=== PATIENT | male | born 1965 | race Caucasian/White ===

== ENCOUNTER 2020-10-06 17:20 | Inpatient (IN) | payer BC, SELFPAY ==
[2020-10-06] VITALS (19 sets, daily range): BP systolic 140–167; BP diastolic 72–98; PULSE 94–118; RESP 17–27; TEMP 37.1–37.6; O2SAT 89–96; BMI 33.5
--- NOTE | ~2020-10-06 | XR_ITS ---
EXAMINATION: XR chest 1V portable INDICATION: COVID 19 pneumonia TECHNIQUE: Portable AP chest at 0548 hours COMPARISON: 10/09/2020 FINDINGS: Patchy bilateral opacities persist throughout all lung zones without significant change. Th ere is no pleural effusion or pneumothorax. The cardiomediastinal silhouette is normal. IMPRESSION: 1. Stable diffuse lung disease, consistent with pneumonia and/or pulmonary edema and/or acute respira tory distress syndrome (ARDS). Reviewed, dictated and finalized at location A. ING PROJECTS ADMINISTRATOR IMPRESSION: 1. Stable diffuse lung disease, consistent with pneumonia and/or pulmonary kalpana a and/or acute respiratory distress syndrome (ARDS).
--- NOTE | ~2020-10-06 | XR_ITS ---
EXAMINATION: XR chest 1V portable EXAM DATE: 10/09/2020 05:53 INDICATION: COVID pneumonia. TECHNIQUE: Portable AP frontal chest x-ray was obtained. Comparison is made to prior examination from 10/06, 10/08. FINDINGS: Moderate to large left-sided, moderate amount of right-sided patchy ill-defined airspace di sease consistent with COVID pneumonia. There is no pneumothorax suspected. There are no pleural effus ions. The cardiomediastinal silhouette is prominent but magnified on this AP technique. There are no osseous abnormalities identified. There is been interval progression in airspace disease compared to prior study. IMPRESSION: Bilateral COVID pneumonia with interval progression. Reviewed, dictated and finalized at location A. ORMANCE MANAGEMENT CONSULTANT
--- NOTE | ~2020-10-06 | XR_ITS ---
EXAMINATION: XR chest 1V portable INDICATION: COVID 19, hypoxia TECHNIQUE: Portable AP chest at 1800 hours COMPARISON: None available FINDINGS: There are diffuse opacities of the lungs, left greater than right. No pleural effusion or p neumothorax is identified. The cardiomediastinal silhouette is normal. IMPRESSION: 1. Diffuse lung disease, consistent with pneumonia and/or pulmonary edema and/or acute respiratory di stress syndrome (ARDS). Reviewed, dictated and finalized at location A. UNITY SUPPORT WORKER IMPRESSION: 1. Diffuse lung disease, consistent with pneumonia and/or pulmonary edema and/o r acute respiratory distress syndrome (ARDS).
--- NOTE | ~2020-10-06 | XR_ITS ---
EXAMINATION: XR chest 1V portable EXAM DATE: 10/08/2020 07:59 INDICATION: COVID pneumonia. TECHNIQUE: Portable AP frontal chest x-ray was obtained. Comparison is made to prior examination from 10/06/2020. FINDINGS: Moderate left-sided, small to moderate amount of right-sided patchy ill-defined airspace di sease consistent with COVID pneumonia. There is no pneumothorax suspected. There are no pleural effus ions. The cardiomediastinal silhouette is prominent but magnified on this AP technique. There are no osseous abnormalities identified. IMPRESSION: Bilateral COVID pneumonia unchanged. Reviewed, dictated and finalized at location A. HER GOODS I ASSEMBLER
--- NOTE | 2020-10-06 17:28 | ECG_ITS ---
Measurements Intervals Lee Rate: 107 P: 23 SC: 136 QRS: -40 QRSD: 105 T: 16 QT: 329 QTc: 440 Interpretive Statements SINUS TACHYCARDIA LEFT AXIS DEVIATION ANTEROSEPTAL INFARCT, AGE INDETERMINATE BASELINE ARTIFACT- I, III, AVR, AVL ABNORMAL ECG Electronically Signed On 10-06-2020 21:38:42 DIRECTOR ELECTRONICS by Javan Apodaca D.O.
--- NOTE | 2020-10-06 17:34 | ED.GENADULT ---
HPI - General Adult General Chief complaint: Shortness of Breath/Dyspnea Stated complaint: low o2 levels, shortness of breath, COVID positive Time Seen by Provider: 10/06/20 17:23 Source: patient History of Present Illness HPI narrative: Patient is a 55 y/o male complaining of mild SOB for about 6 days. He states that walking and exertion makes his SOB worse. He has some cough and subjective fever. He denies any chest pain. He states that he went to a urgent care clinic last week Tuesday or and his COVID test was positive. Related Data Home Medications Medication Instructions Recorded Confirmed buspirone [BuSpar] 10 mg PO BID 10/06/20 glipizide 10 mg BID 10/06/20 10/06/20 Allergies Allergy/AdvReac Type Severity Reaction Status Date / Time No Known Allergies Allergy Verified 10/06/20 18:08 Review of Systems Constitutional: Constitutional: Denies chills, Reports fever(s), Denies headache(s) and Denies weakness Eyes: Eyes: Denies blurry vision ENT: Denies headache(s) and Denies neck pain Cardiovascular: Cardiovascular: Denies chest pain and Reports dyspnea Respiratory: Respiratory: Reports cough and Reports dyspnea Gastrointestinal: Gastrointestinal: Denies abdominal pain, Denies diarrhea, Denies nausea and Denies vomiting Genitourinary: Genitourinary: Denies hematuria and Denies dysuria Musculoskeletal: Musculoskeletal: Denies back pain and Denies neck pain Neurologic: Denies headache(s) and Denies weakness PMFSH Social History Social History Gender identity (if verbalized by the patient): Male Exam Const: General: no acute distress and well developed Orientation/consciousness: oriented to person, oriented to place, oriented to time and patient oriented x3 HENMT: Head: normocephalic Ears: external ears normal General nose exam: Normal external nose present Eyes: General: appearance normal, both eyes and all related structures Conjunctivae: conjunctivae normal Neck: Neck: normal visual inspection and full ROM Chest: Chest palpation & inspection: normal inspection of the chest and no tenderness Resp: Effort & Inspection: normal respiratory effort Auscultation: clear to auscultation bilaterally Cardio: Rate: regular rate Rhythm: regular rhythm GI: GI Palp: No abdominal tenderness and Yes Soft to palpation Skin: General skin exam: normal color and turgor normal Neuro: General: oriented to person, oriented to place, oriented to time and patient oriented x3 Cognition (Neuro): normal cognition Extrem: General: normal to inspection, full ROM and no pedal edema Psych: Appearance: grossly normal Mental Status: mental status grossly normal Affect: normal affect Course Consultations Consultation #1: Discussed with KEL Dueñas, who agrees to admit. Date: 10/06/20 Time: 18:52 Vital Signs Vital signs: Vital Signs Temperature 37.6 C 10/06/20 17:37 Pulse Rate 105 H 10/06/20 17:37 Respiratory Rate 24 H 10/06/20 17:37 Blood Pressure 167/98 H 10/06/20 17:37 Pulse Oximetry 89 L 10/06/20 17:37 Temperature 37.6 C 10/06/20 17:37 Pulse Rate 99 10/06/20 19:01 Respiratory Rate 22 H 10/06/20 19:01 Blood Pressure 155/87 H 10/06/20 19:01 Pulse Oximetry 94 10/06/20 19:01 Medical Decision Making Vital Signs Vital Signs: Vital Signs Temperature 37.6 C 10/06/20 17:37 Pulse Rate 105 H 10/06/20 17:37 Respiratory Rate 24 H 10/06/20 17:37 Blood Pressure 167/98 H 10/06/20 17:37 Pulse Oximetry 89 L 10/06/20 17:37 Temperature 37.6 C 10/06/20 17:37 Pulse Rate 99 10/06/20 19:01 Respiratory Rate 22 H 10/06/20 19:01 Blood Pressure 155/87 H 10/06/20 19:01 Pulse Oximetry 94 10/06/20 19:01 Lab Data Result diagrams: 10/06/20 17:38 10/06/20 17:38 Labs: Lab Results 10/06/20 10/06/20 10/06/20 Range/Units 17:36 17:38 17:38 WBC 6.7 (4.5-10.0) K/mm3
[2020-10-06 17:50] LABS: Base Excess ABG -0.1 mEq/l (+/-2.0); Carboxyhemoglobin 0.8 % THb (0-2.0); Fractional Inspired Oxygen 28 %; HCO3 ABG 23.8 mEq/l (22.0-26.0); Methemoglobin ABG 0.2 %THb (0-1.5); Oxygen Content ABG 18.5 %vol (16.0-22.0); Oxygen Saturation ABG 93.4 % (95.0-100.0); Oxyhemoglobin 91.9 % THb (90.0-100.0); PCO2 ABG 36.3 mmHg (35.0-45.0); PO2 ABG 64.8 mmHg (80.0-100.0); PO2 FiO2 Ratio Arterial Blood 2.31 %; Reduced Hemoglobin 7.1 %THb (0-5.0); Total Hemoglobin 14.3 g/dL (12.0-18.0); pH ABG 7.434 (7.350-7.450)
--- NOTE | 2020-10-06 17:50 | PC.NURSE ---
patient brought back to ED room 14 with c/o increasing shortness of breath. (+) Covid 7 days ago. girlfriend checking his O2 sats at home starting noticing RA sats 88% or 85% so sent patient to ED. alert. oriented. denies known fever. denies productive cough. on physician scribe. placed on 2L NC on arrival. has call light in reach.
[2020-10-06 17:51] LABS: Basophils Percent Auto 0.3 % (0.2-1.2); Hematocrit 42.3 % (42.0-52.0); Hemoglobin 14.6 g/dL (14.0-18.0); Immature Granulocyte Absolute 0.01 K/mm3 (0.00-0.031); Immature Granulocyte Percent A 0.1 % (0-0.5); Lymphocytes Absolute Auto 1.05 K/mm3 (0.9-3.2); Lymphocytes Percent Auto 15.7 % (18.3-44.2); Mean Corpuscular HGB Conc 34.5 g/dl (32-36); Mean Corpuscular Hemoglobin 28.7 pg (26-34); Mean Corpuscular Volume 83.1 fl (80-100); Mean Platelet Volume 8.8 fl (7.4-10.4); Monocytes Absolute Auto 0.6 K/mm3 (0.1-0.6); Monocytes Percent Auto 8.5 % (2.6-8.5); Neutrophils Percent Auto 75.4 % (45.5-73.1); Platelet Count Result 285 k/mm3 (150-375); Red Blood Count 5.09 M/mm3 (4.6-6.20); Red Cell Distribution Width 11.8 % (11.5-14.5); White Blood Count 6.7 K/mm3 (4.5-10.0)
[2020-10-06 17:51] LABS: Device NASAL CANNULA; Site Drawn LEFT BRACHIAL
--- NOTE | 2020-10-06 18:12 | PC.NURSE ---
patient updated on current treatment plan. will discuss labs needed prior to giving anti-viral with labs as add-ons or may need to be drawn.
[2020-10-06 18:17] LABS: Lactic Acid Reflex 1.4 mmol/L (0.7-2.1)
[2020-10-06 18:18] LABS: Alanine Aminotransferase 30 U/L (4-50); Albumin Level 3.8 g/dL (3.5-5.1); Alkaline Phosphatase 98 U/L (38-126); Anion Gap 8 mmol/L (8-16); Aspartate Amino Transferase 44 U/L (17-59); Bilirubin,Total 0.6 mg/dL (0.2-1.3); Blood Urea Nitrogen 19 mg/dL (9-20); Carbon Dioxide 26 mmol/L (22-30); Chloride 98 mmol/L (98-107); Estimated CRCL calculation 154 ml/min; Estimated Glomerular Filt Rate > 60; Glucose 345 mg/dL (75-110); Potassium 3.6 mmol/L (3.4-5.0); Sodium 132 mmol/L (137-145)
[2020-10-06 18:20] LABS: Alanine Aminotransferase 30 U/L (4-50)
--- NOTE | 2020-10-06 18:27 | PC.NURSE ---
spoke with pharmacy. labs are documented. ok to start remdesivir.
[2020-10-06] MEDS: INSULIN HUMAN REGULAR (*BKC) 100 UNITS/ML 8 UNITS SUB-Q (18:33)
--- NOTE | 2020-10-06 18:37 | PC.NURSE ---
medicated as ordered. denies any needs except he wants to eat. waiting for other meds from pharmacy.
--- NOTE | 2020-10-06 19:10 | PC.NURSE ---
SBAR faxed to 3rd floor. patient assigned to [id number].
--- NOTE | 2020-10-06 19:35 | PC.NURSE ---
report called to 3rd floor.
--- NOTE | 2020-10-06 19:45 | PC.NURSE ---
This patient, Chino Aleman, was admitted to [facility] Surg Room 303-01. Patient/family oriented to hospital policies and general routines including ID bracelet, bed and alarms, visiting hours, pain management, procedures, bathroom and other care routines, personal items, smoking policy, room service/diet, and visiting hours. Information on how to activate the Rapid Response Team has been discussed. Patient/Family are encouraged to report perceived risks to care and to ask questions if they do not understand what they are told or what they should do.
[2020-10-06] MEDS: REMDESIVIR 200 MG/NS 250 ML 200 MG/250 ML BAG 250 MG IVPB (20:14)
--- NOTE | 2020-10-06 21:51 | PCRCNOTE ---
Pt COVID positive unable to use S9 CPAP at this time.
[2020-10-06 21:55] LABS: Glucose Point of Care 268 (65-105)
[2020-10-07] VITALS (8 sets, daily range): BP systolic 149–169; BP diastolic 69–94; PULSE 75–99; RESP 20–24; TEMP 36.2–36.4; O2SAT 90–93
[2020-10-07] MEDS: glipiZIDE 5 MG TABLET 10 MG BY MOUTH ×2 (06:08→17:16)
[2020-10-07 06:21] LABS: Basophils Percent Auto 0.2 % (0.2-1.2); Hematocrit 39.6 % (42.0-52.0); Hemoglobin 13.4 g/dL (14.0-18.0); Immature Granulocyte Absolute 0.01 K/mm3 (0.00-0.031); Immature Granulocyte Percent A 0.2 % (0-0.5); Lymphocytes Absolute Auto 0.86 K/mm3 (0.9-3.2); Lymphocytes Percent Auto 17.9 % (18.3-44.2); Mean Corpuscular HGB Conc 33.8 g/dl (32-36); Mean Corpuscular Hemoglobin 27.8 pg (26-34); Mean Corpuscular Volume 82.2 fl (80-100); Mean Platelet Volume 9.1 fl (7.4-10.4); Monocytes Absolute Auto 0.2 K/mm3 (0.1-0.6); Neutrophils Absolute Auto 3.7 K/mm3 (1.3-6.7); Neutrophils Percent Auto 76.7 % (45.5-73.1); Platelet Count Result 307 k/mm3 (150-375); Red Blood Count 4.82 M/mm3 (4.6-6.20); Red Cell Distribution Width 11.7 % (11.5-14.5); White Blood Count 4.8 K/mm3 (4.5-10.0)
[2020-10-07 06:48] LABS: Alanine Aminotransferase 30 U/L (4-50); Albumin Level 3.8 g/dL (3.5-5.1); Alkaline Phosphatase 88 U/L (38-126); Anion Gap 7 mmol/L (8-16); Aspartate Amino Transferase 41 U/L (17-59); Bilirubin,Total 0.6 mg/dL (0.2-1.3); Blood Urea Nitrogen 20 mg/dL (9-20); Calcium 9.4 mg/dL (8.4-10.2); Carbon Dioxide 29 mmol/L (22-30); Chloride 98 mmol/L (98-107); Estimated CRCL calculation 155 ml/min; Estimated Glomerular Filt Rate > 60; Glucose 315 mg/dL (75-110); Lactate Dehydrogenase 792 U/L (313-618); Magnesium 2.4 mg/dL (1.6-2.3); Potassium 4.5 mmol/L (3.4-5.0); Sodium 134 mmol/L (137-145)
[2020-10-07 09:23] LABS: Hemoglobin A1C 10.4 % (<5.7)
[2020-10-07] MEDS: ENOXAPARIN 40 MG/0.4 ML SYRINGE SUB-Q ×2 (09:29→21:32)
[2020-10-07] MEDS: busPIRone HCL 10 MG TABLET PO ×2 (09:30→17:16)
[2020-10-07] MEDS: DEXAMETHASONE SOD PHOS INJ 4 MG/ML VIAL 6 MG IV PUSH (09:30)
--- NOTE | 2020-10-07 09:37 | PM.IMHP ---
H&P: HPI History of Present Illness Date/Time: 10/07/20 09:37 Chief Complaint: Shortness of breath, COVID-19 positive Narrative: Chino Aleman is a 55 year old male with a history of diabetes and depression/anxiety who presented emergency room for worsening COVID-19 symptoms. Patient states he started having a severe dry cough, headache and fatigue last Tuesday. He then started having weakness and dizziness and could not eat so he went to the urgent care and got COVID-19 tested and he was positive. He never took his temperature but did have a subjective temp. He uses a CPAP at home and he was checking his oxygen levels and he was hovering around 90 but dropped to 83 which prompted him to come in. Today he is feeling a bit better. He has a slight headache, his cough is better, and his dizziness is gone. He has no shortness of breath at rest or when walking but notices he is taking shallow breaths because it makes him cough. He has not eaten very much as he has no appetite but can smell and taste. He had some diarrhea a couple days ago which is now better. He denies leg pain/so swelling, numbness or tingling, dysuria or chest pain. He states he has diabetes and unsure when his last A1c was. He does not take his glucose at home but just takes his DM medication. He is unsure where he contracted COVID-19 but just last week he went on vacation to [place] where he went to multiple shops and restaurants but states he wore mask. He is unable to take metformin because it causes him to have diarrhea. Review of Systems Review of Systems: All systems reviewed & are unremarkable except as noted in HPI and below PMFSH Past Medical History Medical History (Updated 10/07/20 @ 09:55 by Chrystal Aden PA-C) Anxiety and depression JAMAR (obstructive sleep apnea) T2DM (type 2 diabetes mellitus) Surgical History Surgical History (Updated 10/07/20 @ 09:52 by Chrystal Aden PA-C) History of hernia repair Family History Family History (Updated 10/07/20 @ 09:53 by Chrystal Aden PA-C) Mother Heart disease Father Heart disease Social History Social History (Updated 10/07/20 @ 09:53 by Chrystal Aden PA-C) Social History: Patient drinks about 1 alcoholic beverage a week, has never smoked, does not do marijuana or other drugs. He would like to be a full code. He designates his mother, Fidelina, as his surrogate decision maker if needed Smoking status: Never smoker Alcohol intake: current Drinks per week: 3 Substance use: never Gender identity (if verbalized by the patient): Male Spiritual care concerns: No Meds Home Medications and Allergies Home Medications Medication Instructions Recorded Confirmed Type buspirone [BuSpar] 10 mg PO BID 10/06/20 10/06/20 History glipizide 10 mg BID 10/06/20 10/06/20 History Allergies Allergy/AdvReac Type Severity Reaction Status Date / Time No Known Allergies Allergy Verified 10/06/20 20:27 Vital Signs Vital Signs - 24 hr 10/06/20 17:37 10/06/20 17:42 10/06/20 17:54 Temperature 99.6 F Pulse Rate 105 H 118 H 103 H Respiratory Rate 24 H 23 H Blood Pressure 167/98 H Pulse Oximetry 89 L 94 10/06/20 18:00 10/06/20 18:01 10/06/20 18:02 Temperature Pulse Rate 112 H 107 H 108 H Respiratory Rate 27 H 20 22 H Blood Pressure 162/86 H Pulse Oximetry 91 92 92 10/06/20 18:03 10/06/20 18:15 10/06/20 18:16 Temperature Pulse Rate 100 102 H Respiratory Rate 20 23 H Blood Pressure 150/87 H Pulse Oximetry 94 96 96 10/06/20 18:17 10/06/20 18:30 10/06/20 18:31 Temperature Pulse Rate 106 H 96 97 Respiratory Rate 20 17 21 H Blood Pressure 140/73 Pulse Oximetry 91 94 95 10/06/20 18:45 10/06/20 18:46 10/06/20 18:47 Temperature Pulse Rate 94 97 96 Respiratory Rate 21 H 23 H 19 Blood Pressure 143/72 H Pulse Oximetry 95 95 95 10/06/20 19:00 10/06/20 19:01 10/06/20 20:00 Temperature Pulse Rate 101
[2020-10-07 11:36] LABS: Glucose Point of Care 312 (65-105)
[2020-10-07] MEDS: INSULIN ASPART (*BKC) 100 UNITS/ML SUB-Q ×2 (12:33→17:16)
[2020-10-07 12:38] LABS: Glucose Point of Care 345 (65-105)
[2020-10-07 17:59] LABS: Glucose Point of Care 465 (65-105)
--- NOTE | 2020-10-07 18:03 | PC.NURSE ---
1710 pt was up in restroom without o2 pulse ox 85%, got him back to bed applied o2 at 3 l remained 85 , increased to 6 remained at 86, applied high flow with humidity 8l liters, continued to be 88 % 1730 increased o2 to 15 l high flow,pt blood sugar was 465 Dr. Overton notified instructed to give sliding scale up to 6 units.
[2020-10-07] MEDS: INSULIN GLARGINE (*BKC) 100 UNITS/ML 10 UNITS SUB-Q (21:32)
[2020-10-07] MEDS: REMDESIVIR 100 MG/NS 250 ML 100 MG/250 ML BAG 250 MG IVPB (21:32)
[2020-10-07] MEDS: guaiFENesin 12 HR 600 MG TABCR PO (21:32)
[2020-10-07 21:44] LABS: Glucose Point of Care 433 (65-105)
[2020-10-07] MEDS: INSULIN ASPART (*BKC) 100 UNITS/ML 6 UNITS SUB-Q (23:18)
[2020-10-08] VITALS (11 sets, daily range): BP systolic 148–168; BP diastolic 78–92; PULSE 68–110; RESP 16–20; TEMP 36–36.6; O2SAT 90–96
[2020-10-08 00:34] LABS: Glucose Point of Care 390 (65-105)
[2020-10-08 06:29] LABS: Hematocrit 38.6 % (42.0-52.0); Hemoglobin 13.3 g/dL (14.0-18.0); Mean Corpuscular HGB Conc 34.5 g/dl (32-36); Mean Corpuscular Hemoglobin 27.9 pg (26-34); Mean Corpuscular Volume 81.1 fl (80-100); Mean Platelet Volume 9.1 fl (7.4-10.4); Platelet Count Result 360 k/mm3 (150-375); Red Blood Count 4.76 M/mm3 (4.6-6.20); Red Cell Distribution Width 11.7 % (11.5-14.5); White Blood Count 6.6 K/mm3 (4.5-10.0)
[2020-10-08 06:48] LABS: Alanine Aminotransferase 26 U/L (4-50); Albumin Level 3.3 g/dL (3.5-5.1); Alkaline Phosphatase 100 U/L (38-126); Anion Gap 3 mmol/L (8-16); Aspartate Amino Transferase 33 U/L (17-59); Bilirubin,Total 0.3 mg/dL (0.2-1.3); Blood Urea Nitrogen 25 mg/dL (9-20); CRP 4.5 mg/dL (<1.0); Calcium 9.2 mg/dL (8.4-10.2); Carbon Dioxide 29 mmol/L (22-30); Chloride 104 mmol/L (98-107); Estimated CRCL calculation 155 ml/min; Estimated Glomerular Filt Rate > 60; Glucose 324 mg/dL (75-110); Lactate Dehydrogenase 729 U/L (313-618); Potassium 3.7 mmol/L (3.4-5.0); Sodium 136 mmol/L (137-145)
[2020-10-08] MEDS: INSULIN ASPART (*BKC) 100 UNITS/ML SUB-Q ×6 (08:32→17:17)
[2020-10-08 08:33] LABS: Glucose Point of Care 318 (65-105)
[2020-10-08] MEDS: glipiZIDE 5 MG TABLET 10 MG BY MOUTH ×2 (08:33→17:18)
[2020-10-08] MEDS: guaiFENesin 12 HR 600 MG TABCR PO ×2 (08:34→21:13)
[2020-10-08] MEDS: DEXAMETHASONE SOD PHOS INJ 4 MG/ML VIAL 6 MG IV PUSH (08:34)
[2020-10-08] MEDS: ENOXAPARIN 40 MG/0.4 ML SYRINGE SUB-Q ×2 (08:34→21:13)
[2020-10-08] MEDS: busPIRone HCL 10 MG TABLET PO ×2 (08:34→17:18)
[2020-10-08 13:34] LABS: Glucose Point of Care 337 (65-105)
--- NOTE | 2020-10-08 16:12 | PM.IMPN ---
Progress Note: A&P Assessment and Plan (1) Pneumonia due to COVID-19 virus: Code(s): U07.1 - COVID-19; J12.82 - Pneumonia due to coronavirus disease 2019 Status: Acute Assessment and Plan: Chest x-ray and symptoms consistent with COVID-19 -patient's symptoms started 7 days ago -continue Remdesivir, Decadron, Lovenox -patient required more oxygen yesterday and overnight -recheck chest x-ray in the morning -try and obtain a negative pressure room so he can continue CPAP at night -continue oxygen, currently at 10L -guarded prognosis since he went from 2 L to 10 L within 24 hours (2) Acute respiratory failure with hypoxia: Code(s): J96.01 - Acute respiratory failure with hypoxia Status: Acute Assessment and Plan: Secondary to above -wean oxygen as tolerated (3) T2DM (type 2 diabetes mellitus): Code(s): E11.9 - Type 2 diabetes mellitus without complications Status: Acute Assessment and Plan: Last glucose 337 -worse with Decadron and patient ordering [employer] to bedside -patient does not check his glucose at home -he was not surprised by his A1c of 10.4 -Lantus increased to 15u -Will do scheduled novolog and SSI and increase as needed -will likely need to be adjusted further since his glucose is uncontrolled and on decadron and not following diabetic diet -will go home on Lantus at discharge. Patient is unable to tolerate metformin due to severe diarrhea (4) Anxiety and depression: Code(s): F41.9 - Anxiety disorder, unspecified; F32.9 - Major depressive disorder, single episode, unspecified Status: Acute Assessment and Plan: chronic and well controlled at this time -continue BuSpar -he has no thoughts of harming himself (5) JAMAR (obstructive sleep apnea): Code(s): G47.33 - Obstructive sleep apnea (adult) (pediatric) Status: Acute Assessment and Plan: He wears CPAP at home -unable to wear this since he is not in a negative pressure room and he did not do well without this overnight -I have asked nursing to move him to a negative pressure room so he can wear it overnight Time Spent With Patient Time with patient: 25 - 35 minutes Subjective Date/time seen: 01/20/21 16:12 Interval history: Pt is a 55-year-old male here for COVID who was seen today. Patient states he is feeling better but did not feel well overnight. He said that he woke up gasping for air because he is not able to wear his CPAP and really thinks it makes a difference. He had 1 episode of diarrhea this morning but no other episodes since. He does not really feel any shortness of breath at this time but continues to have cough and postnasal drip which is uncomfortable for him. He denies any chest pain. He states his blood sugar has been running high but also admits to ordering [employer] to be delivered to his hospital room last night. Review of Systems Review of Systems: All systems reviewed & are unremarkable except as noted in HPI and below Exam Narrative: Exam Narrative: General:Well developed well nourished patient HEENT: Normocephalic, atraumatic, PERRL, Sclerae anicteric, oral mucosa moist. Neck: Supple Resp: Clear to auscultation today--much improved Heart: RRR with no murmurs. Telemetry with no significant arrhythmias, some artifact noted yesterday. Occasional PVCs today Abd: Soft, nontender. No pain to palpation. Positive bowel sounds Skin: Warm and dry Extremities: No swelling, erythema or pain to palpation Neuro: Alert and Oriented x4 . CN 2-12 intact. No focal neurological deficits. Objective Data Vital Signs Vital Signs: Vital Signs - 24 hr 10/07/20 17:30 10/07/20 17:33 10/07/20 20:00 Temperature 97.5 F L 97.4 F L Pulse Rate 99 95 Respiratory Rate 24 H 20 Blood Pressure 151/90 H 160/94 H Pulse Oximetry 92 90 92 10/08/20 00:00 10/08/20 04:00 10/08/20 08:00 Temperature 97.2 F L 97.9 F 97.1 F L
[2020-10-08] MEDS: BENZOCAINE/MENTHOL (*BKC) 18 EA LOZENGE 1 LOZENGE PO (17:17)
[2020-10-08 18:29] LABS: Glucose Point of Care 393 (65-105)
[2020-10-08] MEDS: INSULIN GLARGINE (*BKC) 100 UNITS/ML 15 UNITS SUB-Q (21:13)
[2020-10-08] MEDS: FLUTICASONE PROPIONATE 0.05% NA SPR 16 GM BTL (*BKC) 1 SPRAY NASAL (21:14)
[2020-10-08] MEDS: REMDESIVIR 100 MG/NS 250 ML 100 MG/250 ML BAG 250 MG IVPB (21:21)
[2020-10-08 22:02] LABS: Glucose Point of Care 351 (65-105)
[2020-10-09] VITALS (10 sets, daily range): BP systolic 116–174; BP diastolic 57–98; PULSE 71–111; RESP 18–24; TEMP 35.9–37.3; O2SAT 90–96
[2020-10-09 06:37] LABS: Hematocrit 41.8 % (42.0-52.0); Hemoglobin 14.5 g/dL (14.0-18.0); Mean Corpuscular HGB Conc 34.7 g/dl (32-36); Mean Corpuscular Hemoglobin 28.8 pg (26-34); Mean Corpuscular Volume 83.1 fl (80-100); Mean Platelet Volume 9.2 fl (7.4-10.4); Platelet Count Result 479 k/mm3 (150-375); Red Blood Count 5.03 M/mm3 (4.6-6.20); Red Cell Distribution Width 11.9 % (11.5-14.5); White Blood Count 10.3 K/mm3 (4.5-10.0)
[2020-10-09 06:44] LABS: Alanine Aminotransferase 28 U/L (4-50); Albumin Level 3.5 g/dL (3.5-5.1); Alkaline Phosphatase 95 U/L (38-126); Anion Gap 7 mmol/L (8-16); Aspartate Amino Transferase 36 U/L (17-59); Bilirubin,Total 0.4 mg/dL (0.2-1.3); Blood Urea Nitrogen 17 mg/dL (9-20); CRP 4.5 mg/dL (<1.0); Calcium 9.2 mg/dL (8.4-10.2); Carbon Dioxide 29 mmol/L (22-30); Chloride 102 mmol/L (98-107); Estimated CRCL calculation 134 ml/min; Estimated Glomerular Filt Rate > 60; Glucose 222 mg/dL (75-110); Lactate Dehydrogenase 785 U/L (313-618); Magnesium 1.8 mg/dL (1.6-2.3); Potassium 3.2 mmol/L (3.4-5.0); Sodium 138 mmol/L (137-145)
[2020-10-09 08:24] LABS: Glucose Point of Care 242 (65-105)
[2020-10-09] MEDS: INSULIN ASPART (*BKC) 100 UNITS/ML SUB-Q ×4 (11:00→17:54)
[2020-10-09] MEDS: glipiZIDE 5 MG TABLET 10 MG BY MOUTH ×2 (11:00→17:52)
[2020-10-09] MEDS: busPIRone HCL 10 MG TABLET PO ×2 (11:01→17:52)
[2020-10-09] MEDS: DEXAMETHASONE SOD PHOS INJ 4 MG/ML VIAL 6 MG IV PUSH (11:01)
[2020-10-09] MEDS: POTASSIUM CHLORIDE 20 MEQ TABLET 40 MEQ PO (11:01)
[2020-10-09] MEDS: FLUTICASONE PROPIONATE 0.05% NA SPR 16 GM BTL (*BKC) 1 SPRAY NASAL ×2 (11:02→21:42)
[2020-10-09] MEDS: ENOXAPARIN 40 MG/0.4 ML SYRINGE SUB-Q ×2 (11:02→21:42)
[2020-10-09] MEDS: guaiFENesin 12 HR 600 MG TABCR PO ×2 (11:02→21:42)
[2020-10-09 12:18] LABS: Glucose Point of Care 251 (65-105)
--- NOTE | 2020-10-09 16:58 | PM.IMPN ---
Progress Note: A&P Assessment and Plan (1) Pneumonia due to COVID-19 virus: Code(s): U07.1 - COVID-19; J12.82 - Pneumonia due to coronavirus disease 2019 Status: Acute Assessment and Plan: Chest x-ray and symptoms consistent with COVID-19 -patient's symptoms started 8 days ago -continue Remdesivir, Decadron, Lovenox -patient is requiring more oxygen today and chest x-ray looks worse -will order ABG at this time and continue increased oxygen now at 15 L nasal cannula with 10 L non-rebreather -patient is now on a negative pressure room although he could not use a CPAP because the mask was not fitting overnight. He has shaved and is going to try that tonight. He thinks his hypoxia has to do with his sleep apnea since the he has bad apnea according to him -guarded prognosis (2) Acute respiratory failure with hypoxia: Code(s): J96.01 - Acute respiratory failure with hypoxia Status: Acute Assessment and Plan: Secondary to above -wean oxygen as tolerated (3) T2DM (type 2 diabetes mellitus): Code(s): E11.9 - Type 2 diabetes mellitus without complications Status: Acute Assessment and Plan: Last glucose 251 -worse with Decadron and patient ordering [employer] to bedside the day prior -patient does not check his glucose at home -he was not surprised by his A1c of 10.4 -continue Lantus 15u -will continued schedule NovoLog as well as SSI and increase as needed -will likely need to be adjusted further since his glucose is uncontrolled and on decadron and not following diabetic diet -will go home on Lantus at discharge. Patient is unable to tolerate metformin due to severe diarrhea (4) Anxiety and depression: Code(s): F41.9 - Anxiety disorder, unspecified; F32.9 - Major depressive disorder, single episode, unspecified Status: Acute Assessment and Plan: chronic and well controlled at this time -continue BuSpar -he has no thoughts of harming himself (5) JAMAR (obstructive sleep apnea): Code(s): G47.33 - Obstructive sleep apnea (adult) (pediatric) Status: Acute Assessment and Plan: He wears CPAP at home -Now in a negative pressure room, re-trying CPAP tonight Time Spent With Patient Time with patient: 25 - 35 minutes Subjective Date/time seen: 10/09/20 16:58 Interval history: Pt is a 55-year-old male here for COVID-19. Patient was seen today after nursing staff tells me his oxygen requirement went up. Patient seen sitting on the edge of the bed in no acute distress. He said he did not even notice that he was short of breath or hypoxic until he had routine vitals done which showed hypoxia. He had no chest pain, diaphoresis, shortness of breath, nausea, vomiting, fevers, chills, or leg swelling during this time. He feels a little short of breath when walking around the room but other than that okay. He has had 1 episode diarrhea today. He is eating and drinking well Review of Systems Review of Systems: All systems reviewed & are unremarkable except as noted in HPI and below Exam Narrative: Exam Narrative: General:Well developed well nourished patient HEENT: Normocephalic, atraumatic, PERRL, Sclerae anicteric, oral mucosa moist. Neck: Supple Resp: Mild crackles at the bases, overall good air flow Heart: RRR with no murmurs. Telemetry with no significant arrhythmias Abd: Soft, nontender. No pain to palpation. Positive bowel sounds Skin: Warm and dry Extremities: No swelling, erythema or pain to palpation Neuro: Alert and Oriented x4 . CN 2-12 intact. No focal neurological deficits. Objective Data Vital Signs Vital Signs: Vital Signs - 24 hr 10/08/20 17:31 10/08/20 20:00 10/09/20 00:00 Temperature 97.9 F 98.2 F Pulse Rate 75 79 Respiratory Rate 20 20 Blood Pressure 168/90 H 174/89 H Pulse Oximetry 95 92 92 10/09/20 04:00 10/09/20 04:20 10/09/20 08:00 Temperature 98.1 F 98.7 F Pulse Rat
[2020-10-09 17:30] LABS: Alveolar/Arterial O2 Gradient 597.1 mmHg; Base Excess ABG -2.8 mEq/l (+/-2.0); Carboxyhemoglobin 0.3 % THb (0-2.0); Fractional Inspired Oxygen 100 %; HCO3 ABG 19.9 mEq/l (22.0-26.0); Methemoglobin ABG 0.3 %THb (0-1.5); Oxygen Content ABG 19.7 %vol (16.0-22.0); Oxyhemoglobin 95.6 % THb (90.0-100.0); PCO2 ABG 29.4 mmHg (35.0-45.0); PO2 ABG 86.5 mmHg (80.0-100.0); PO2 FiO2 Ratio Arterial Blood 0.87 %; Reduced Hemoglobin 3.8 %THb (0-5.0); Total Hemoglobin 14.6 g/dL (12.0-18.0); pH ABG 7.448 (7.350-7.450)
[2020-10-09 17:31] LABS: Modified Allen's Test Pass; Site Drawn LEFT RADIAL
[2020-10-09 18:33] LABS: Glucose Point of Care 332 (65-105)
[2020-10-09] MEDS: REMDESIVIR 100 MG/NS 250 ML 100 MG/250 ML BAG 250 MG IVPB (21:42)
[2020-10-09] MEDS: INSULIN GLARGINE (*BKC) 100 UNITS/ML 15 UNITS SUB-Q (22:35)
[2020-10-09 23:44] LABS: Glucose Point of Care 255 (65-105)
[2020-10-10] VITALS (11 sets, daily range): BP systolic 125–150; BP diastolic 64–93; PULSE 68–90; RESP 15–21; TEMP 35.8–36.6; O2SAT 94–100
[2020-10-10 06:41] LABS: Basophils Percent Auto 0.3 % (0.2-1.2); Eosinophils Absolute Auto 0.2 K/mm3 (0-0.3); Eosinophils Percent Auto 3.3 % (0-4.4); Hematocrit 36.4 % (42.0-52.0); Hemoglobin 12.2 g/dL (14.0-18.0); Immature Granulocyte Absolute 0.02 K/mm3 (0.00-0.031); Immature Granulocyte Percent A 0.3 % (0-0.5); Lymphocytes Absolute Auto 1.38 K/mm3 (0.9-3.2); Lymphocytes Percent Auto 24.1 % (18.3-44.2); Mean Corpuscular HGB Conc 33.5 g/dl (32-36); Mean Corpuscular Hemoglobin 27.8 pg (26-34); Mean Corpuscular Volume 82.9 fl (80-100); Mean Platelet Volume 8.9 fl (7.4-10.4); Monocytes Absolute Auto 0.6 K/mm3 (0.1-0.6); Monocytes Percent Auto 10.8 % (2.6-8.5); Neutrophils Absolute Auto 3.5 K/mm3 (1.3-6.7); Neutrophils Percent Auto 61.2 % (45.5-73.1); Platelet Count Result 378 k/mm3 (150-375); Red Blood Count 4.39 M/mm3 (4.6-6.20); Red Cell Distribution Width 11.9 % (11.5-14.5); White Blood Count 5.7 K/mm3 (4.5-10.0)
[2020-10-10 07:17] LABS: Alanine Aminotransferase 21 U/L (4-50); Albumin Level 2.9 g/dL (3.5-5.1); Alkaline Phosphatase 75 U/L (38-126); Anion Gap 2 mmol/L (8-16); Aspartate Amino Transferase 27 U/L (17-59); Bilirubin,Total 0.4 mg/dL (0.2-1.3); Blood Urea Nitrogen 16 mg/dL (9-20); Calcium 8.7 mg/dL (8.4-10.2); Carbon Dioxide 30 mmol/L (22-30); Chloride 104 mmol/L (98-107); Estimated CRCL calculation 182 ml/min; Estimated Glomerular Filt Rate > 60; Glucose 222 mg/dL (75-110); Lactate Dehydrogenase 693 U/L (313-618); Magnesium 2.1 mg/dL (1.6-2.3); Potassium 3.2 mmol/L (3.4-5.0); Sodium 136 mmol/L (137-145)
[2020-10-10 08:09] LABS: Device HIGH FLOW NASAL CANN
[2020-10-10] MEDS: INSULIN ASPART (*BKC) 100 UNITS/ML SUB-Q ×5 (08:27→17:52)
[2020-10-10] MEDS: ENOXAPARIN 40 MG/0.4 ML SYRINGE SUB-Q ×2 (08:27→22:09)
[2020-10-10] MEDS: glipiZIDE 5 MG TABLET 10 MG BY MOUTH ×2 (08:28→16:17)
[2020-10-10] MEDS: DEXAMETHASONE SOD PHOS INJ 4 MG/ML VIAL 6 MG IV PUSH (08:30)
[2020-10-10] MEDS: guaiFENesin 12 HR 600 MG TABCR PO ×2 (08:31→22:10)
[2020-10-10] MEDS: FLUTICASONE PROPIONATE 0.05% NA SPR 16 GM BTL (*BKC) 1 SPRAY NASAL ×2 (08:32→22:10)
[2020-10-10 08:38] LABS: CRP 14.6 mg/dL (<1.0)
[2020-10-10 08:39] LABS: Glucose Point of Care 212 (65-105)
[2020-10-10] MEDS: buPROPion HCL XL (24 HR) 150 MG TABCR 300 MG PO (10:20)
[2020-10-10] MEDS: POTASSIUM CHLORIDE 20 MEQ TABLET 40 MEQ PO (10:20)
[2020-10-10 12:23] LABS: Glucose Point of Care 335 (65-105)
--- NOTE | 2020-10-10 15:18 | PM.IMPN ---
Progress Note: A&P Assessment and Plan (1) Pneumonia due to COVID-19 virus: Code(s): U07.1 - COVID-19; J12.82 - Pneumonia due to coronavirus disease 2018 Status: Acute Assessment and Plan: Chest x-ray and symptoms consistent with COVID-19 -patient's symptoms started 9 days ago -continue Remdesivir, Decadron, Lovenox -patient is requiring more oxygen today and chest x-ray 10/09 was worse -patient is now on a negative pressure room and has been wearing his CPAP which he thinks helped him overnight -because of his worsening state, will order plasma -guarded prognosis (2) Acute respiratory failure with hypoxia: Code(s): J96.01 - Acute respiratory failure with hypoxia Status: Acute Assessment and Plan: Secondary to above -wean oxygen as tolerated (3) T2DM (type 2 diabetes mellitus): Code(s): E11.9 - Type 2 diabetes mellitus without complications Status: Acute Assessment and Plan: Last glucose 335 -worse with Decadron and patient ordering food outside the hospital -patient does not check his glucose at home -he was not surprised by his A1c of 10.4 -continue Lantus, will increase to 20u -will continued schedule NovoLog as well as SSI and increase as needed -will likely need to be adjusted further since his glucose is uncontrolled and on decadron and not following diabetic diet -will go home on Lantus at discharge. Patient is unable to tolerate metformin due to severe diarrhea (4) Anxiety and depression: Code(s): F41.9 - Anxiety disorder, unspecified; F32.9 - Major depressive disorder, single episode, unspecified Status: Acute Assessment and Plan: chronic and well controlled at this time -continue Wellbutrin -he has no thoughts of harming himself -he is feeling a little bummed that he is still in the hospital, I told him his girlfriend can bring him up an ipad/book/something to keep his mind off things. I also suggested he open the shades during the day because he is sitting in a dark room (5) JAMAR (obstructive sleep apnea): Code(s): G47.33 - Obstructive sleep apnea (adult) (pediatric) Status: Acute Assessment and Plan: He wears CPAP at home -Now in a negative pressure room,continue with that Subjective Date/time seen: 10/10/20 15:18 Interval history: Pt is a 55-year-old male here for COVID-19. Patient was seen today and has no complaints. He says although the nursing staff keeps telling him he is hypoxic, he does not feel bad. He is tired of being in the hospital. He denies chest pain, shortness of breath at rest or with movement, fevers, chest pain, nausea, vomiting, diarrhea, constipation. I talked to him about the risk and benefit convalescent plasma and he is agreeable to plasma. He understands if he gets worse he needs to moved IMU and will need Airvo and we also talked about the need for ventilation. Exam Narrative: Exam Narrative: General:Well developed well nourished patient HEENT: Normocephalic, atraumatic, PERRL, Sclerae anicteric, oral mucosa moist. Neck: Supple Resp: CTA. Nasal cannula and non-rebreather applied Heart: RRR with no murmurs. Telemetry with no significant arrhythmias Abd: Soft, nontender. No pain to palpation. Positive bowel sounds Skin: Warm and dry Extremities: No swelling, erythema or pain to palpation Neuro: Alert and Oriented x4 . CN 2-12 intact. No focal neurological deficits. Objective Data Vital Signs Vital Signs: Vital Signs - 24 hr 10/09/20 16:00 10/09/20 16:20 10/09/20 20:00 Temperature 97.7 F 96.7 F L Pulse Rate 85 85 89 Respiratory Rate 24 H 24 H 20 Blood Pressure 155/98 H 144/90 H Pulse Oximetry 94 93 94 10/09/20 23:46 10/10/20 00:00 10/10/20 02:13 Temperature 96.7 F L Pulse Rate 71 68 70 Respiratory Rate 20 20 21 H Blood Pressure 149/88 H Pulse Oximetry 96 99 96 10/10/20 04:00 10/10/20 08:00 10/10/20 08:25 Temperature 96.5 F L 97.3 F
[2020-10-10 17:17] LABS: Glucose Point of Care 364 (65-105)
[2020-10-10] MEDS: INSULIN ASPART (*BKC) 100 UNITS/ML 6 UNITS SUB-Q (17:52)
[2020-10-10] MEDS: REMDESIVIR 100 MG/NS 250 ML 100 MG/250 ML BAG 250 MG IVPB (22:10)
[2020-10-10] MEDS: SODIUM CHLORIDE NASAL GEL 14.1 GM 1 APPLIC NASAL (22:11)
[2020-10-10] MEDS: INSULIN GLARGINE (*BKC) 100 UNITS/ML 20 UNITS SUB-Q (22:13)
[2020-10-10 23:20] LABS: Glucose Point of Care 365 (65-105)
[2020-10-11] VITALS (14 sets, daily range): BP systolic 140–165; BP diastolic 68–98; PULSE 18–92; RESP 16–22; TEMP 35.6–36.6; O2SAT 94–100
[2020-10-11 07:03] LABS: Hematocrit 35.2 % (42.0-52.0); Hemoglobin 11.7 g/dL (14.0-18.0); Mean Corpuscular HGB Conc 33.2 g/dl (32-36); Mean Corpuscular Hemoglobin 28.3 pg (26-34); Mean Platelet Volume 8.9 fl (7.4-10.4); Platelet Count Result 405 k/mm3 (150-375); Red Blood Count 4.14 M/mm3 (4.6-6.20); Red Cell Distribution Width 11.9 % (11.5-14.5); White Blood Count 6.3 K/mm3 (4.5-10.0)
[2020-10-11 07:31] LABS: Alanine Aminotransferase 20 U/L (4-50); Albumin Level 2.8 g/dL (3.5-5.1); Alkaline Phosphatase 80 U/L (38-126); Anion Gap -1 mmol/L (8-16); Aspartate Amino Transferase 23 U/L (17-59); Bilirubin,Total 0.3 mg/dL (0.2-1.3); Blood Urea Nitrogen 20 mg/dL (9-20); Carbon Dioxide 34 mmol/L (22-30); Chloride 105 mmol/L (98-107); Estimated CRCL calculation 134 ml/min; Estimated Glomerular Filt Rate > 60; Glucose 267 mg/dL (75-110); Lactate Dehydrogenase 667 U/L (313-618); Potassium 3.8 mmol/L (3.4-5.0); Sodium 138 mmol/L (137-145)
[2020-10-11 08:19] LABS: Glucose Point of Care 259 (65-105)
[2020-10-11] MEDS: INSULIN ASPART (*BKC) 100 UNITS/ML SUB-Q ×2 (08:21→11:52)
[2020-10-11] MEDS: glipiZIDE 5 MG TABLET 10 MG BY MOUTH ×2 (08:21→17:45)
[2020-10-11] MEDS: INSULIN ASPART (*BKC) 100 UNITS/ML 6 UNITS SUB-Q ×3 (08:22→17:46)
[2020-10-11] MEDS: buPROPion HCL XL (24 HR) 150 MG TABCR 300 MG PO (08:23)
[2020-10-11] MEDS: ENOXAPARIN 40 MG/0.4 ML SYRINGE SUB-Q ×2 (08:24→21:05)
[2020-10-11] MEDS: guaiFENesin 12 HR 600 MG TABCR PO ×2 (08:24→21:06)
[2020-10-11] MEDS: FLUTICASONE PROPIONATE 0.05% NA SPR 16 GM BTL (*BKC) 1 SPRAY NASAL ×2 (08:25→21:09)
[2020-10-11] MEDS: DEXAMETHASONE SOD PHOS INJ 4 MG/ML VIAL 6 MG IV PUSH (08:25)
[2020-10-11 11:50] LABS: Glucose Point of Care 319 (65-105)
[2020-10-11] MEDS: SODIUM CHLORIDE 0.9% IV 250 ML 75 ML (11:51)
--- NOTE | 2020-10-11 12:30 | PM.IMPN ---
Progress Note: A&P Assessment and Plan (1) Pneumonia due to COVID-19 virus: Code(s): U07.1 - COVID-19; J12.82 - Pneumonia due to coronavirus disease 2018 Status: Acute Assessment and Plan: Chest x-ray and symptoms consistent with COVID-19 -patient's symptoms started 10 days ago -He completed Remdesivir 10/10/20 -continue Decadron and Lovenox -patient is currently receiving convalescent plasma -CXR shows stable disease consistent with PNA vs pulmonary edema vs ARDS -he is in a negative pressure room and does well with his CPAP -he is still requiring 15 L nasal cannula wall with non-rebreather but I do think some of this is because he is a mouth breather. -guarded prognosis (2) Acute respiratory failure with hypoxia: Code(s): J96.01 - Acute respiratory failure with hypoxia Status: Acute Assessment and Plan: Secondary to above -wean oxygen as tolerated (3) T2DM (type 2 diabetes mellitus): Code(s): E11.9 - Type 2 diabetes mellitus without complications Status: Acute Assessment and Plan: Last glucose 319 -worse with Decadron and patient ordering food outside the hospital -patient does not check his glucose at home -he was not surprised by his A1c of 10.4 -continue Lantus, increased to 20u 10/10/20 -continue home glipizide -continue scheduled NovoLog, increased 10/10/2020, and sliding scale insulin -will likely need to be adjusted further since his glucose is uncontrolled and on decadron and not following diabetic diet -will go home on Lantus at discharge. Patient is unable to tolerate metformin due to severe diarrhea (4) Anxiety and depression: Code(s): F41.9 - Anxiety disorder, unspecified; F32.9 - Major depressive disorder, single episode, unspecified Status: Acute Assessment and Plan: chronic and well controlled at this time -continue Wellbutrin -he has no thoughts of harming himself (5) JAMAR (obstructive sleep apnea): Code(s): G47.33 - Obstructive sleep apnea (adult) (pediatric) Status: Acute Assessment and Plan: He wears CPAP at home -Now in a negative pressure room,continue with that Subjective Date/time seen: 10/11/20 12:30 Interval history: Pt is a 55-year-old male here for COVID-19. Patient was seen today while getting plasma and nurse at bedside. Patient states he does not have any complaints today and thinks he feels better. He says he does better on the CPAP but notices his oxygen goes down during the day at times. He does not feel short of breath while in bed or walking around the bed. He says he is more of a mouth breather. He is eating and drinking okay and denies chest pain, shortness of breath, fevers, chills, nausea, vomiting, diarrhea, constipation or leg swelling. He has had about 1 soft stool a day but no actual diarrhea Exam Narrative: Exam Narrative: General:Well developed well nourished patient HEENT: Normocephalic, atraumatic, PERRL, Sclerae anicteric, oral mucosa moist. Neck: Supple Resp: Mildly decreased breath sounds but overall clear. Nasal cannula and non-rebreather applied Heart: RRR with no murmurs. Telemetry with no significant arrhythmias Abd: Soft, nontender. No pain to palpation. Positive bowel sounds Skin: Warm and dry Extremities: No swelling, erythema or pain to palpation Neuro: Alert and Oriented x4 . CN 2-12 intact. No focal neurological deficits. Objective Data Vital Signs Vital Signs: Vital Signs - 24 hr 10/10/20 16:00 10/10/20 18:00 10/10/20 20:00 Temperature 97.3 F L 97.9 F Pulse Rate 83 74 Respiratory Rate 16 16 Blood Pressure 134/64 125/74 Pulse Oximetry 97 96 97 10/10/20 23:18 10/11/20 00:00 10/11/20 02:15 Temperature 97.4 F L Pulse Rate 74 Respiratory Rate 15 18 18 Blood Pressure 153/88 H Pulse Oximetry 98 100 98 10/11/20 02:52 10/11/20 04:00 10/11/20 08:00 Temperature 98 F 96.7 F L Pulse Rate 79 69 Respiratory Ra
[2020-10-11 17:36] LABS: Glucose Point of Care 406 (65-105)
[2020-10-11] MEDS: INSULIN GLARGINE (*BKC) 100 UNITS/ML 10 UNITS SUB-Q (17:46)
[2020-10-11] MEDS: INSULIN GLARGINE (*BKC) 100 UNITS/ML 20 UNITS SUB-Q (21:06)
[2020-10-11] MEDS: SODIUM CHLORIDE NASAL GEL 14.1 GM 1 APPLIC NASAL (21:08)
[2020-10-12] VITALS (12 sets, daily range): BP systolic 131–161; BP diastolic 71–86; PULSE 74–92; RESP 16–20; TEMP 36.2–37.1; O2SAT 95–100
[2020-10-12 07:25] LABS: Anion Gap 1 mmol/L (8-16); Blood Urea Nitrogen 26 mg/dL (9-20); Calcium 8.8 mg/dL (8.4-10.2); Carbon Dioxide 34 mmol/L (22-30); Chloride 102 mmol/L (98-107); Estimated CRCL calculation 134 ml/min; Estimated Glomerular Filt Rate > 60; Glucose 261 mg/dL (75-110); Potassium 3.2 mmol/L (3.4-5.0); Sodium 137 mmol/L (137-145)
[2020-10-12 08:01] LABS: Glucose Point of Care 240 (65-105)
[2020-10-12] MEDS: glipiZIDE 5 MG TABLET 10 MG BY MOUTH ×2 (08:25→18:03)
[2020-10-12] MEDS: amLODIPine BESYLATE 5 MG TABLET PO (08:26)
[2020-10-12] MEDS: buPROPion HCL XL (24 HR) 150 MG TABCR 300 MG PO (08:26)
[2020-10-12] MEDS: DEXAMETHASONE SOD PHOS INJ 4 MG/ML VIAL 6 MG IV PUSH (08:27)
[2020-10-12] MEDS: ENOXAPARIN 40 MG/0.4 ML SYRINGE SUB-Q ×2 (08:27→21:41)
[2020-10-12] MEDS: FLUTICASONE PROPIONATE 0.05% NA SPR 16 GM BTL (*BKC) 1 SPRAY NASAL ×2 (08:27→21:42)
[2020-10-12] MEDS: guaiFENesin 12 HR 600 MG TABCR PO ×2 (08:28→21:42)
[2020-10-12] MEDS: INSULIN ASPART (*BKC) 100 UNITS/ML 6 UNITS SUB-Q ×3 (08:29→18:02)
[2020-10-12] MEDS: INSULIN ASPART (*BKC) 100 UNITS/ML SUB-Q ×3 (08:29→18:02)
[2020-10-12 13:23] LABS: Glucose Point of Care 264 (65-105)
--- NOTE | 2020-10-12 14:10 | PM.IMPN ---
Progress Note: A&P Assessment and Plan (1) Pneumonia due to COVID-19 virus: Code(s): U07.1 - COVID-19; J12.82 - Pneumonia due to coronavirus disease 2018 Status: Acute Assessment and Plan: Chest x-ray and symptoms consistent with COVID-19 -patient's symptoms started 11 days ago -He completed Remdesivir 10/10/20 -continue Decadron and Lovenox -patient did well with the convalescent plasma, will do 1 again today -CXR shows stable disease consistent with PNA vs pulmonary edema vs ARDS -he is in a negative pressure room and does well with his CPAP -he is requiring less oxygen today, down to 12 L (2) Acute respiratory failure with hypoxia: Code(s): J96.01 - Acute respiratory failure with hypoxia Status: Acute Assessment and Plan: Secondary to above -wean oxygen as tolerated (3) T2DM (type 2 diabetes mellitus): Code(s): E11.9 - Type 2 diabetes mellitus without complications Status: Acute Assessment and Plan: Last glucose 264 -worse with Decadron and patient ordering food outside the hospital (he ordered taco mill[employer] last night) -patient does not check his glucose at home -he was not surprised by his A1c of 10.4 -continue Lantus, increased to 20u 10/10/20 -continue home glipizide -continue scheduled NovoLog, increased 10/10/2020, and sliding scale insulin -will likely need to be adjusted further since his glucose is uncontrolled and on decadron and not following diabetic diet -will go home on Lantus at discharge. Patient is unable to tolerate metformin due to severe diarrhea (4) Anxiety and depression: Code(s): F41.9 - Anxiety disorder, unspecified; F32.9 - Major depressive disorder, single episode, unspecified Status: Acute Assessment and Plan: chronic and well controlled at this time -continue Wellbutrin -he has no thoughts of harming himself (5) JAMAR (obstructive sleep apnea): Code(s): G47.33 - Obstructive sleep apnea (adult) (pediatric) Status: Acute Assessment and Plan: He wears CPAP at home -Now in a negative pressure room,continue with that Subjective Date/time seen: 10/12/20 14:10 Interval history: Pt is a 55-year-old male here for COVID-19. Patient was seen today and states he feels stronger today. He thinks the plasma did help him as he has more strength and needs less oxygen. He says he has been ordering food and had taco millan last night and ordered Wings today. He is drinking a huge diet soda at bedside. He denies chest pain, shortness of breath, fevers, chills, nausea, vomiting or leg swelling. He had a little bit of diarrhea today. Exam Narrative: Exam Narrative: General:Well developed well nourished patient HEENT: Normocephalic, atraumatic, PERRL, Sclerae anicteric, oral mucosa moist. Neck: Supple Resp: Mildly decreased breath sounds but overall clear. Nasal cannula applied Heart: RRR with no murmurs. Abd: Soft, nontender. No pain to palpation. Positive bowel sounds Skin: Warm and dry Extremities: No swelling, erythema or pain to palpation Neuro: Alert and Oriented x4 . CN 2-12 intact. No focal neurological deficits. Objective Data Vital Signs Vital Signs: Vital Signs - 24 hr 10/11/20 16:00 10/11/20 20:00 10/11/20 21:00 Temperature 97.9 F 96.4 F L Pulse Rate 85 80 80 Respiratory Rate 20 18 18 Blood Pressure 145/68 H 151/98 H Pulse Oximetry 98 96 96 10/11/20 23:17 10/12/20 00:00 10/12/20 04:00 Temperature 97.5 F L 97.2 F L Pulse Rate 18 L 86 82 Respiratory Rate 18 20 20 Blood Pressure 157/75 H 152/76 H Pulse Oximetry 96 100 100 10/12/20 08:00 10/12/20 12:00 10/12/20 12:41 Temperature 98.0 F 98.0 F Pulse Rate 74 92 Respiratory Rate 16 16 Blood Pressure 161/80 H 131/71 Pulse Oximetry 96 98 97 10/12/20 13:27 Temperature Pulse Rate 92 Respiratory Rate 16 Blood Pressure Pulse Oximetry 97 Intake/Output Intake/Output: Intake & Output 10/09/20 0
[2020-10-12] MEDS: POTASSIUM CHLORIDE 20 MEQ TABLET 40 MEQ PO (14:37)
[2020-10-12 17:16] LABS: Glucose Point of Care 330 (65-105)
[2020-10-12] MEDS: INSULIN GLARGINE (*BKC) 100 UNITS/ML 20 UNITS SUB-Q (21:42)
[2020-10-12] MEDS: SODIUM CHLORIDE NASAL GEL 14.1 GM 1 APPLIC NASAL (21:42)
[2020-10-12 22:32] LABS: Glucose Point of Care 300 (65-105)
[2020-10-13] VITALS (10 sets, daily range): BP systolic 123–166; BP diastolic 71–83; PULSE 67–100; RESP 16–20; TEMP 35.8–36.6; O2SAT 92–99
[2020-10-13 06:14] LABS: Hematocrit 36.3 % (42.0-52.0); Hemoglobin 12.1 g/dL (14.0-18.0); Mean Corpuscular HGB Conc 33.3 g/dl (32-36); Mean Corpuscular Hemoglobin 27.6 pg (26-34); Mean Corpuscular Volume 82.9 fl (80-100); Mean Platelet Volume 8.6 fl (7.4-10.4); Platelet Count Result 523 k/mm3 (150-375); Red Blood Count 4.38 M/mm3 (4.6-6.20); Red Cell Distribution Width 11.8 % (11.5-14.5)
[2020-10-13 06:33] LABS: Alanine Aminotransferase 31 U/L (4-50); Albumin Level 3.1 g/dL (3.5-5.1); Alkaline Phosphatase 94 U/L (38-126); Anion Gap 1 mmol/L (8-16); Aspartate Amino Transferase 35 U/L (17-59); Bilirubin,Total 0.3 mg/dL (0.2-1.3); Blood Urea Nitrogen 22 mg/dL (9-20); CRP 1.6 mg/dL (<1.0); Calcium 9.3 mg/dL (8.4-10.2); Carbon Dioxide 37 mmol/L (22-30); Chloride 98 mmol/L (98-107); Estimated CRCL calculation 134 ml/min; Estimated Glomerular Filt Rate > 60; Glucose 244 mg/dL (75-110); Sodium 136 mmol/L (137-145)
[2020-10-13 09:04] LABS: Glucose Point of Care 241 (65-105)
[2020-10-13] MEDS: buPROPion HCL XL (24 HR) 150 MG TABCR 300 MG PO (09:33)
[2020-10-13] MEDS: amLODIPine BESYLATE 5 MG TABLET PO (09:33)
[2020-10-13] MEDS: DEXAMETHASONE SOD PHOS INJ 4 MG/ML VIAL 6 MG IV PUSH (09:34)
[2020-10-13] MEDS: ENOXAPARIN 40 MG/0.4 ML SYRINGE SUB-Q ×2 (09:34→21:15)
[2020-10-13] MEDS: guaiFENesin 12 HR 600 MG TABCR PO ×2 (09:35→21:16)
[2020-10-13] MEDS: FLUTICASONE PROPIONATE 0.05% NA SPR 16 GM BTL (*BKC) 1 SPRAY NASAL ×2 (09:35→21:44)
[2020-10-13] MEDS: INSULIN ASPART (*BKC) 100 UNITS/ML SUB-Q ×3 (09:47→17:36)
[2020-10-13] MEDS: INSULIN ASPART (*BKC) 100 UNITS/ML 6 UNITS SUB-Q ×3 (09:52→17:23)
[2020-10-13] MEDS: glipiZIDE 5 MG TABLET 10 MG BY MOUTH ×2 (10:00→17:23)
--- NOTE | 2020-10-13 11:23 | PCNWS ---
Weekly nutritional screen. Patient is tolerating current diet with adequate intake. No nutritional needs at this time.
[2020-10-13 12:07] LABS: Glucose Point of Care 316 (65-105)
--- NOTE | 2020-10-13 14:13 | PM.IMPN ---
Progress Note: A&P Assessment and Plan (1) Pneumonia due to COVID-19 virus: Code(s): U07.1 - COVID-19; J12.82 - Pneumonia due to coronavirus disease 2018 Status: Acute Assessment and Plan: Chest x-ray and symptoms consistent with COVID-19 -patient's symptoms started 12 days ago -He completed Remdesivir 10/10/20 -continue Decadron and Lovenox -patient did well with the convalescent plasma x 2 -In the last 24 hours the pt has required much less oxygen and is now on 5L which is an improvement down from 15 liters just yesterday -CXR shows stable disease consistent with PNA vs pulmonary edema vs ARDS -he is in a negative pressure room and does well with his CPAP -If pt continues to improve, may be able to discharge in a couple of days. We did discuss he may need o2 for a short time at home (2) Acute respiratory failure with hypoxia: Code(s): J96.01 - Acute respiratory failure with hypoxia Status: Acute Assessment and Plan: Secondary to above -wean oxygen as tolerated (3) T2DM (type 2 diabetes mellitus): Code(s): E11.9 - Type 2 diabetes mellitus without complications Status: Acute Assessment and Plan: Last glucose 316 -worse with Decadron and patient ordering food outside the hospital (he has ordered pizza, taco millan, [place] etc) -patient does not check his glucose at home -he was not surprised by his A1c of 10.4 -continue Lantus, increased to 23u 10/13/20 -continue home glipizide -continue scheduled NovoLog, increased 10/10/2020, and sliding scale insulin -will likely need to be adjusted further since his glucose is uncontrolled and on decadron and not following diabetic diet -will go home on Lantus at discharge (at a smaller dose since he will be off decaddron). Patient is unable to tolerate metformin due to severe diarrhea (4) Anxiety and depression: Code(s): F41.9 - Anxiety disorder, unspecified; F32.9 - Major depressive disorder, single episode, unspecified Status: Acute Assessment and Plan: chronic and well controlled at this time -continue Wellbutrin -he has no thoughts of harming himself (5) JAMAR (obstructive sleep apnea): Code(s): G47.33 - Obstructive sleep apnea (adult) (pediatric) Status: Acute Assessment and Plan: He wears CPAP at home -Now in a negative pressure room,continue with that (6) Thrombocytosis: Code(s): D47.3 - Essential (hemorrhagic) thrombocythemia Status: Acute Assessment and Plan: Could be due to steroids or acute illness -Monitor Subjective Date/time seen: 10/13/20 14:13 Interval history: Pt is a 55-year-old male here for COVID-19. Patient was seen today and again feeling much better in the last few days. He thinks the plasma improved his symptoms. Pt denies nausea, vomiting, fevers, chills, constipation, diarrhea, chest pain, sob, or abdominal pain. He still has a little congestion. Exam Narrative: Exam Narrative: General:Well developed well nourished patient HEENT: Normocephalic, atraumatic, PERRL, Sclerae anicteric, oral mucosa moist. Neck: Supple Resp: Mildly decreased breath sounds but overall clear. Nasal cannula applied Heart: RRR with no murmurs. Abd: Soft, nontender. No pain to palpation. Positive bowel sounds Skin: Warm and dry Extremities: No swelling, erythema or pain to palpation Neuro: Alert and Oriented x4 . CN 2-12 intact. No focal neurological deficits. Objective Data Vital Signs Vital Signs: Vital Signs - 24 hr 10/12/20 16:00 10/12/20 18:45 10/12/20 20:00 Temperature 98.8 F 97.7 F Pulse Rate 83 83 88 Respiratory Rate 16 16 20 Blood Pressure 139/73 142/79 H Pulse Oximetry 95 95 95 10/12/20 23:02 10/12/20 23:17 10/12/20 23:46 Temperature 97.3 F L 97.6 F Pulse Rate 92 90 Respiratory Rate 18 20 Blood Pressure 156/86 H 154/82 H Pulse Oximetry 97 95 96 10/13/20 00:17 10/13/20 01:17 10/13/20 04:00 Tempera
[2020-10-13 17:35] LABS: Glucose Point of Care 387 (65-105)
[2020-10-13] MEDS: INSULIN GLARGINE (*BKC) 100 UNITS/ML 23 UNITS SUB-Q (21:23)
[2020-10-13 21:43] LABS: Glucose Point of Care 376 (65-105)
[2020-10-13] MEDS: SODIUM CHLORIDE NASAL GEL 14.1 GM 1 APPLIC NASAL (21:45)
[2020-10-14] VITALS (12 sets, daily range): BP systolic 136–156; BP diastolic 71–93; PULSE 74–105; RESP 15–22; TEMP 36.3–36.9; O2SAT 94–100
[2020-10-14 06:11] LABS: Hematocrit 35.5 % (42.0-52.0); Hemoglobin 11.9 g/dL (14.0-18.0); Mean Corpuscular HGB Conc 33.5 g/dl (32-36); Mean Corpuscular Hemoglobin 27.9 pg (26-34); Mean Corpuscular Volume 83.1 fl (80-100); Mean Platelet Volume 8.7 fl (7.4-10.4); Platelet Count Result 504 k/mm3 (150-375); Red Blood Count 4.27 M/mm3 (4.6-6.20); Red Cell Distribution Width 11.7 % (11.5-14.5); White Blood Count 8.5 K/mm3 (4.5-10.0)
[2020-10-14 06:33] LABS: Anion Gap 1 mmol/L (8-16); Blood Urea Nitrogen 21 mg/dL (9-20); CRP 0.9 mg/dL (<1.0); Carbon Dioxide 36 mmol/L (22-30); Chloride 99 mmol/L (98-107); Estimated CRCL calculation 155 ml/min; Estimated Glomerular Filt Rate > 60; Glucose 223 mg/dL (75-110); Magnesium 1.8 mg/dL (1.6-2.3); Potassium 3.8 mmol/L (3.4-5.0); Sodium 136 mmol/L (137-145)
[2020-10-14 08:05] LABS: Glucose Point of Care 196 (65-105)
[2020-10-14] MEDS: INSULIN ASPART (*BKC) 100 UNITS/ML 6 UNITS SUB-Q ×3 (08:51→15:20)
[2020-10-14] MEDS: guaiFENesin 12 HR 600 MG TABCR PO ×2 (08:52→21:43)
[2020-10-14] MEDS: ENOXAPARIN 40 MG/0.4 ML SYRINGE SUB-Q ×2 (08:52→21:43)
[2020-10-14] MEDS: amLODIPine BESYLATE 5 MG TABLET PO (08:52)
[2020-10-14] MEDS: buPROPion HCL XL (24 HR) 150 MG TABCR 300 MG PO (08:52)
[2020-10-14] MEDS: DEXAMETHASONE SOD PHOS INJ 4 MG/ML VIAL 6 MG IV PUSH (08:53)
[2020-10-14] MEDS: FLUTICASONE PROPIONATE 0.05% NA SPR 16 GM BTL (*BKC) 1 SPRAY NASAL ×2 (08:57→21:43)
[2020-10-14] MEDS: glipiZIDE 5 MG TABLET 10 MG BY MOUTH ×2 (10:13→16:22)
[2020-10-14] MEDS: INSULIN ASPART (*BKC) 100 UNITS/ML SUB-Q ×2 (12:27→15:21)
[2020-10-14 12:28] LABS: Glucose Point of Care 338 (65-105)
--- NOTE | 2020-10-14 14:40 | PM.IMPN ---
Progress Note: A&P Assessment and Plan (1) Pneumonia due to COVID-19 virus: Code(s): U07.1 - COVID-19; J12.82 - Pneumonia due to coronavirus disease 2018 Status: Acute Assessment and Plan: Chest x-ray shows stable diffuse lung disease. COVID positive around 09/30 per patient report. He completed Remdesivir 10/10/20. Received convalescent plasma 10/11, 10/12. Continue dexamethasone (day 7). Lovenox BID for DVT ppx. He is in a negative pressure room using CPAP. Continue supportive care with Tylenol for fevers, albuterol MDI, Robitussin, incentive spirometer, supplementation of Zinc, vitamins C and D. Continue supplemental oxygen; wean O2 as tolerated to keep O2 saturations > 90%. Was on 3.5L/min this morning, now adequate saturations on room air are documented late this afternoon. Monitor overnight, anticipate possible discharge in 1-2 days. (2) Acute respiratory failure with hypoxia: Code(s): J96.01 - Acute respiratory failure with hypoxia Status: Acute Assessment and Plan: Secondary to COVID. See plan above. (3) T2DM (type 2 diabetes mellitus): Code(s): E11.9 - Type 2 diabetes mellitus without complications Status: Acute Assessment and Plan: Hgb A1c is 10.4%. Hyperglycemia with blood sugars up into 300s today. Worse with steroid therapy and patient ordering food from outside hospital, not motivated to comply with diabetic diet. Continue Lantus, increased to 25 units 10/14. Continue scheduled NovoLog increased 10/14. Continue home glipizide. (4) Anxiety and depression: Code(s): F41.9 - Anxiety disorder, unspecified; F32.9 - Major depressive disorder, single episode, unspecified Status: Chronic Assessment and Plan: Stable. Continue his home medications. (5) JAMAR (obstructive sleep apnea): Code(s): G47.33 - Obstructive sleep apnea (adult) (pediatric) Status: Chronic Assessment and Plan: Continue CPAP in negative pressure room. (6) Thrombocytosis: Code(s): D47.3 - Essential (hemorrhagic) thrombocythemia Status: Acute Assessment and Plan: May be related to steroids or acute illness. Will monitor. Subjective Date/time seen: 10/14/20 1330 Interval history: Mr. Aleman is a 55yo M admitted for acute respiratory failure due to COVID. Patient reports he is feeling better today. He tells me he feels stronger and that has cough is improved. He denies chest pain, shortness of breath. He is tolerating oral intake, good appetite without nausea or vomiting. Notes he never lost taste or smell. Review of Systems Review of Systems: All systems reviewed & are unremarkable except as noted in HPI and below Exam Narrative: Exam Narrative: General: Male resting comfortably supine in bed in no acute distress. HEENT: Normocephalic, EOMI, oral mucosa moist. Cardiovascular: Rate and rhythm are regular. Respiratory: Mildly decreased breath sounds bilaterally, but overall clear. Respirations even and non-labored. Tolerating 3.5 L/min NC. Abdomen: Soft, non-tender, non-distended, bowel sounds present. Extremities: Peripheral pulses intact. No edema or pain to palpation. Neuro: No focal neurological deficits. Speech is clear. Objective Data Vital Signs Vital Signs: Last Vital Signs Temp 97.7 F 10/14/20 16:00 Pulse 88 10/14/20 16:00 Resp 20 10/14/20 16:00 BP 154/78 H 10/14/20 16:00 Pulse Ox 98 10/14/20 16:24 Intake/Output Intake/Output: Intake & Output 10/11/20 10/12/20 10/13/20 10/14/20 23:59 23:59 23:59 23:59 Intake Total 3541 2480 2963 710 Output Total 3600 2450 3000 1000 Balance -59 30 -37 -290 Meds/Results Medications
[2020-10-14 15:27] LABS: Glucose Point of Care 321 (65-105)
[2020-10-14] MEDS: INSULIN GLARGINE (*BKC) 100 UNITS/ML 25 UNITS SUB-Q (21:30)
[2020-10-14] MEDS: SODIUM CHLORIDE NASAL GEL 14.1 GM 1 APPLIC NASAL (21:43)
[2020-10-14 21:48] LABS: Glucose Point of Care 357 (65-105)
[2020-10-15] VITALS: BP 158/92; PULSE 73; RESP 20; TEMP 36.4; O2SAT 100
[2020-10-15 04:00] VITALS: BP 143/81; PULSE 85; RESP 22; TEMP 36.7; O2SAT 90
[2020-10-15 08:00] VITALS: BP 146/87; PULSE 80; RESP 20; TEMP 35.8; O2SAT 97
[2020-10-15 08:24] LABS: Glucose Point of Care 182 (65-105)
[2020-10-15] MEDS: guaiFENesin 12 HR 600 MG TABCR PO (08:48)
[2020-10-15] MEDS: amLODIPine BESYLATE 5 MG TABLET PO (08:48)
[2020-10-15] MEDS: glipiZIDE 5 MG TABLET 10 MG BY MOUTH (08:48)
[2020-10-15] MEDS: ZINC SULFATE 220 MG CAPSULE PO (08:48)
[2020-10-15] MEDS: ASCORBIC ACID 500 MG TABLET PO (08:49)
[2020-10-15] MEDS: CHOLECALCIFEROL 1,000 UNITS TABLET 1000 UNITS PO (08:49)
[2020-10-15] MEDS: buPROPion HCL XL (24 HR) 150 MG TABCR 300 MG PO (08:49)
[2020-10-15] MEDS: DEXAMETHASONE SOD PHOS INJ 4 MG/ML VIAL 6 MG IV PUSH (08:50)
[2020-10-15] MEDS: FLUTICASONE PROPIONATE 0.05% NA SPR 16 GM BTL (*BKC) 1 SPRAY NASAL (08:51)
[2020-10-15] MEDS: INSULIN ASPART (*BKC) 100 UNITS/ML 8 UNITS SUB-Q ×2 (08:51→12:52)
[2020-10-15] MEDS: ENOXAPARIN 40 MG/0.4 ML SYRINGE SUB-Q (08:51)
[2020-10-15 12:00] VITALS: BP 146/87; PULSE 80; RESP 20; TEMP 35.8; O2SAT 97
[2020-10-15 12:30] LABS: Glucose Point of Care 282 (65-105)
--- NOTE | 2020-10-15 12:42 | PM.DS ---
DS: Admitting Diagnosis Admitting Diagnosis Admitting Diagnosis: Acute respiratory failure, COVID-19 DS: Discharge Diagnosis Discharge Diagnosis (1) Pneumonia due to COVID-19 virus: Code(s): U07.1 - COVID-19; J12.82 - Pneumonia due to coronavirus disease 2019 Status: Acute Assessment and Plan: Date of Admission 10/06/20 Date of Discharge/DOS 10/15/20 Mr. Aleman is a 55yo M with type 2 diabetes mellitus, anxiety, depression, obstructive sleep apnea, and hypertension who was known COVID positive presented to the ED for evaluation of worsening shortness of breath and weakness. Patient was covered positive around 09/30/2020 per patient report. He was started on dexamethasone and room does severe, supplemental oxygen, and other supportive care to include Tylenol, Robitussin, incentive spirometer. He completed a 5 day course of rum does of your on 10/10/2020. He also received 2 units of convalescent plasma on 10/11/2020 and 10/12/2020. He completed 8 days of dexamethasone in the hospital and will continue 2 more days oral dexamethasone outpatient to complete the 10 day course. He was requiring up to 15 liters/minute supplemental oxygen through his stay, notably improved in the days following. Supplemental oxygen was continually weaned and he was maintaining adequate oxygen saturations on room air without any oxygen on day of discharge as well as the evening before. He is noted to have Hgb A1c of 10.4%. He describes it has been ?a while ?since he has been routinely checking his blood sugars at home and he is not surprised by his elevated A1c. He has been on oral glipizide for quite some time, and he was also maintained on short-acting and long-acting insulin while hospitalized. He does not seem motivated to comply with a diabetic diet, and while low dose steroid therapy may be in part contributing to his hyperglycemia, he was noted to eat fast food from outside the hospital on multiple occasions. He will be discharged with new Lantus and is encouraged to follow-up with primary care in less than 1 week. He is strongly encouraged to get back on a routine of regularly checking his blood sugars at home. He is also noted to have elevated blood pressures, does not appear to be on any antihypertensive medications. He was started on a low-dose Norvasc, encouraged to follow-up with PCP regarding blood pressure management. He was hemodynamically stable for discharge on 10/15/2020 with instructions to follow-up with PCP regarding his covered recovery and goals of achieving tighter glycemic control. Chest x-ray shows stable diffuse lung disease. COVID positive around 09/30 per patient report. He completed Remdesivir 10/10/20. Received convalescent plasma 10/11, 10/12. Treated with 8 days of dexamethasone, discharged with 2 more days of dexamethasone to complete the course. Lovenox BID for DVT ppx while inpatient. He was in a negative pressure room using CPAP. Treated with supportive care with Tylenol for fevers, albuterol MDI, Robitussin, incentive spirometer, supplementation of Zinc, vitamins C and D. Treated with supplemental oxygen, required up to 15 L/min and the evening prior to discharge, overnight, and day of discharge he was maintaining adequate oxygen saturations on room air. (2) Acute respiratory failure with hypoxia: Code(s): J96.01 - Acute respiratory failure with hypoxia Status: Resolved Assessment and Plan: Resolved. Secondary to COVID. See plan above. (3) T2DM (type 2 diabetes mellitus): Code(s): E11.9 - Type 2 diabetes mellitus without complications Status: Acute Assessment and Plan: Hgb A1c is 10.4%. Hyperglycemia with blood sugars up into 300s today. Worse with steroid therapy and patient ordering food from outside hospital, not motivated to comply with jerry
[2020-10-15] MEDS: INSULIN ASPART (*BKC) 100 UNITS/ML SUB-Q (12:52)
[2020-10-16 07:21] LABS: Glucose Point of Care 328 (65-105)
== END 2020-10-15 14:05 | disposition home or self-care (01) | DRG 177 ==
LOC: ANHED 18:18 → ANH3MEDSUR 19:36
PROVIDERS: Nurse Practitioner; Physician Assistant; Admitting Provider Family Medicine; Emergency Provider Emergency Medicine; PCP Family Medicine; Visit Provider Physician Assistant
DX: U07.1 COVID-19 (principal); J12.82 Pneumonia due to coronavirus disease 2019; J96.01 Acute respiratory failure with hypoxia; G47.33 Obstructive sleep apnea (adult) (pediatric); E11.9 Type 2 diabetes mellitus without complications; F32.9 Major depressive disorder, single episode, unspecified; F41.9 Anxiety disorder, unspecified; I10 Essential (primary) hypertension; D47.3 Essential (hemorrhagic) thrombocythemia; Z79.84 Long term (current) use of oral hypoglycemic drugs; Z79.899 Other long term (current) drug therapy
CPT/HCPCS: 36415; 36430; 36600; 71045; 80048; 80053; 80076; 82375; 82728; 82805; 83036; 83050; 83605; 83615; 83735; 84460; 85025; 85027; 86140; 86900; 86901; 87040; 93005; 94002; 94003; 96374; 99291; A9270; J1100; J1650; J1815; J7050; P9059

== ENCOUNTER 2023-01-31 08:26 | Emergency (ER) | payer OTHER, SELFPAY ==
[2023-01-31 08:43] VITALS: BP 158/89; PULSE 90; RESP 14; TEMP 36.4; O2SAT 98
--- NOTE | 2023-01-31 08:44 | ED.SKABFB ---
HPI - Skin/Abscess/Foreign Bdy General Chief complaint: Skin/Abscess/Foreign Body Stated complaint: Insect bite on back of upper thigh Time Seen by Provider: 01/31/23 08:55 Source: patient and RN notes reviewed Mode of arrival: ambulatory Limitations: dementia History of Present Illness HPI narrative: 57-year-old male presents with concern for possible spider bite in his groin area. He reports his moral he noticed a ear bone that was slightly tender underneath hand scrotum. He denies fever, aches, chills, sweats. Reports he typically gets a rash that area from the heat. He denies drainage. Denies any scrotal or testicular swelling, redness, warmth, pain. MD complaint: other (Redness) Related Data Home Medications Medication Instructions Recorded Confirmed glipizide 10 mg tablet 10 mg BID 10/06/20 01/31/23 bupropion HCl 300 mg 24 hr tablet, 300 mg PO DAILY 10/10/20 01/31/23 extended release atorvastatin 40 mg tablet 40 mg PO DAILY 01/31/23 01/31/23 buspirone 7.5 mg tablet 7.5 mg PO BID 01/31/23 01/31/23 losartan 25 mg tablet 25 mg PO DAILY 01/31/23 01/31/23 Allergies Allergy/AdvReac Type Severity Reaction Status Date / Time No Known Allergies Allergy Verified 01/31/23 08:48 Review of Systems Review of Systems: CONSTITUTIONAL: Denies malaise, chills, sweats, or fever. EYES: Denies redness, or discharge. ENT: Denies rhinorrhea, congestion, swollen lips, swollen tongue CARDIOVASCULAR: Denies chest pain, palpitations, or edema. RESPIRATORY: Denies cough or dyspnea. GASTROINTESTINAL: Denies abdominal pain, nausea, vomiting SKIN: Reports redness, tenderness underneath his scrotum. Denies purulent drainage, vesicles, bullae, numbness, pain beyond proportion MUSCULOSKELETAL: Denies joint pain or myalgia. NEUROLOGIC: Denies headache. All systems reviewed & are unremarkable except as noted in HPI and below PMFSH Past Medical History Medical History (Updated 01/31/23 @ 09:06 by Jocelyne Spivey NP) Anxiety and depression JAMAR (obstructive sleep apnea) T2DM (type 2 diabetes mellitus) Surgical History Surgical History (Updated 10/07/20 @ 09:52 by Chrystal Pinozn PA-C) History of hernia repair Family History Family History (Updated 10/07/20 @ 09:53 by Chrystal Pinzon PA-C) Mother Heart disease Father Heart disease Social History Social History (Updated 10/07/20 @ 09:53 by Chrystal Pinzon PA-C) Social History: Patient drinks about 1 alcoholic beverage a week, has never smoked, does not do marijuana or other drugs. He would like to be a full code. He designates his mother, Fidelina, as his surrogate decision maker if needed Smoking status: Never smoker Alcohol intake: current Drinks per week: 3 Substance use: never Gender identity (if verbalized by the patient): Male Spiritual care concerns: No Comments At time of signature, agree with nursing past medical, surgical, social and family history. There is no relevant family history pertinent to the presenting complaint Exam Narrative: GENERAL: Well-appearing, well-nourished, and in no acute distress. HEAD: Normocephalic, atraumatic. EYES: PERRLA, conjunctivae clear ENT: Mucous membranes moist. NECK: Supple. No lymphadenopathy CHEST: Clear to auscultation. No respiratory distress. HEART: Regular rate and rhythm. SKIN: Warm, dry. Small area are erythema, induration, tenderness, warmth with sharp margins noted underneath the scrotum approximately she 0.5 cm x 3 cm without fluctuation or drainage. No vesicles, bullae, necrosis, ecchymosis, crepitus noted. NEURO: Alert and oriented x3. PSYCH: Normal mood and affect Course Course Emergency Course: Patient is aware of diagnosis, understands and agrees to treatment plan. Anticipatory guidance given. Patient agrees to follow-up as directed and is aware of reasons to seek care at the emergency department. Portions of this record may have been created with voice recogn
== END 2023-01-31 09:15 | disposition home or self-care (01) ==
PROVIDERS: Emergency Provider Nurse Practitioner
DX: L08.9 Local infection of the skin and subcutaneous tissue, unspecified (principal); B96.89 Other specified bacterial agents as the cause of diseases classified elsewhere; F41.9 Anxiety disorder, unspecified; F32.A Depression, unspecified; E11.9 Type 2 diabetes mellitus without complications
CPT/HCPCS: 99213; G0463

== ENCOUNTER 2023-11-26 12:27 | Emergency (ER) | payer OTHER, SELFPAY ==
[2023-11-26 12:41] VITALS: BP 127/72; PULSE 73; RESP 16; TEMP 36.6; O2SAT 98
[2023-11-26 12:46] VITALS: BP 127/72; PULSE 73; RESP 16; TEMP 36.6; O2SAT 98
--- NOTE | 2023-11-26 12:47 | ED.SKABFB ---
HPI - Skin/Abscess/Foreign Bdy General Chief complaint: Skin/Abscess/Foreign Body Stated complaint: left big toe blister Time Seen by Provider: 11/26/23 13:37 Source: patient and RN notes reviewed Mode of arrival: ambulatory Limitations: no limitations History of Present Illness HPI narrative: 58-year-old male with history of diabetes presents with concern for redness, swelling, warmth, pain to the 1st digit of the left foot. Reports he got a blister on the foot a few days ago and then symptoms worsened from there. He reports he took leftover penicillin today. He denies fever, body aches, chills, sweats. He denies drainage from the area MD complaint: other (cellulitis) Related Data Home Medications Medication Instructions Recorded Confirmed bupropion HCl 300 mg 24 hr tablet, 300 mg PO DAILY 10/10/20 11/26/23 extended release atorvastatin 40 mg tablet 40 mg PO DAILY 01/31/23 11/26/23 buspirone 7.5 mg tablet 7.5 mg PO BID 01/31/23 11/26/23 dulaglutide 3 mg/0.5 mL 3 mg subcut WEEKLY 11/26/23 11/26/23 subcutaneous pen injector (Trulicity) insulin glargine 100 unit/mL (3 30 unit subcut HS 11/26/23 11/26/23 mL) subcutaneous pen (Lantus Solostar U-100 Insulin) testosterone cypionate 200 mg/mL See Rx Instructions .Route .COMPLEX 11/26/23 11/26/23 intramuscular oil Allergies Allergy/AdvReac Type Severity Reaction Status Date / Time No Known Allergies Allergy Verified 11/26/23 12:41 Review of Systems Review of Systems: CONSTITUTIONAL: Denies malaise, chills, sweats, or fever. EYES: Denies redness, or discharge. ENT: Denies rhinorrhea, congestion, swollen lips, swollen tongue CARDIOVASCULAR: Denies chest pain, palpitations, or edema. RESPIRATORY: Denies cough or dyspnea. GASTROINTESTINAL: Denies abdominal pain, nausea, vomiting SKIN: Reports redness, swelling, warmth, pain to the 1st digit of the left foot extending into the foot. Denies drainage MUSCULOSKELETAL: Denies joint pain or myalgia. NEUROLOGIC: Denies headache. All systems reviewed & are unremarkable except as noted in HPI and below PMFSH Past Medical History Medical History (Updated 11/26/23 @ 13:41 by Jocelyne Spivey NP) Anxiety and depression JAMAR (obstructive sleep apnea) T2DM (type 2 diabetes mellitus) Surgical History Surgical History (Updated 10/07/20 @ 09:52 by Chrystal Pinzon PA-C) History of hernia repair Family History Family History (Updated 10/07/20 @ 09:53 by Chrystal Pinzon PA-C) Mother Heart disease Father Heart disease Social History Social History (Updated 10/07/20 @ 09:53 by Chrystal Pinzon PA-C) Social History: Patient drinks about 1 alcoholic beverage a week, has never smoked, does not do marijuana or other drugs. He would like to be a full code. He designates his mother, Fidelina, as his surrogate decision maker if needed Smoking status: Never smoker Alcohol intake: current Drinks per week: 3 Substance use: never Gender identity (if verbalized by the patient): Male Spiritual care concerns: No Comments At time of signature, agree with nursing past medical, surgical, social and family history. There is no relevant family history pertinent to the presenting complaint Exam Narrative: GENERAL: Well-appearing, well-nourished, and in no acute distress. HEAD: Normocephalic, atraumatic. EYES: PERRLA, conjunctivae clear, and EOMI. ENT: Mucous membranes moist. Oropharynx without edema, erythema or lesions. NECK: Supple. No lymphadenopathy CHEST: Clear to auscultation. No respiratory distress. HEART: Regular rate and rhythm. SKIN: Warm, dry. First digit of left foot erythematous, edematous, tender, warm, blister noted to the distal digit, redness extending into the foot. The foot has mild edema without erythema, warmth, induration NEURO: Alert and oriented x3. PSYCH: Normal mood and affect Course Course Emergency Course: I discussed with patient the possible need
== END 2023-11-26 13:54 | disposition home or self-care (01) ==
PROVIDERS: Emergency Provider Nurse Practitioner; PCP Family Medicine
DX: E11.628 Type 2 diabetes mellitus with other skin complications (principal); Z79.4 Long term (current) use of insulin; S90.422A Blister (nonthermal), left great toe, initial encounter; X58.XXXA Exposure to other specified factors, initial encounter; F41.9 Anxiety disorder, unspecified; F32.A Depression, unspecified
CPT/HCPCS: 99213; G0463

== ENCOUNTER 2024-05-31 08:12 | Emergency (ER) | payer OTHER, SELFPAY ==
--- NOTE | 2024-05-31 08:18 | ED.URI ---
HPI - URI/Sore Throat General Chief Complaint: Upper Respiratory Infection Stated Complaint: congestion,cough,fever,chills Time Seen by Provider: 05/31/24 08:18 Source: patient Mode of arrival: ambulatory Limitations: no limitations History of Present Illness HPI Narrative: [place] is a 58-year-old male patient presenting to the clinic today with complaints of cough, congestion, body aches, felt feverish, and chills. She reports symptoms have been going on for 2 days. He did at home COVID test this morning and was positive. He denies any chest pain or shortness of breath. Temperature is 37.3? currently. MD elicited complaint: fever, cough and nasal congestion Related Data Home Medications Medication Instructions Recorded Confirmed bupropion HCl 300 mg 24 hr tablet, 300 mg PO DAILY 10/10/20 05/31/24 extended release atorvastatin 40 mg tablet 40 mg PO DAILY 01/31/23 05/31/24 buspirone 7.5 mg tablet 7.5 mg PO BID 01/31/23 05/31/24 dulaglutide 3 mg/0.5 mL 3 mg subcut WEEKLY 11/26/23 05/31/24 subcutaneous pen injector (Trulicity) insulin glargine 100 unit/mL (3 30 unit subcut HS 11/26/23 05/31/24 mL) subcutaneous pen (Lantus Solostar U-100 Insulin) testosterone cypionate 200 mg/mL See Rx Instructions .Route .COMPLEX 11/26/23 05/31/24 intramuscular oil Allergies Allergy/AdvReac Type Severity Reaction Status Date / Time No Known Allergies Allergy Verified 05/31/24 08:28 Review of Systems Review of Systems: Pertinent positives per HPI. Patient denies any fever, chills, rash, headache, visual changes, dizziness, cough, shortness of breath, chest pain, palpitations, nausea, vomiting, diarrhea, constipation, abdominal pain, or any urinary issues. [facility] Past Medical History Medical History Anxiety and depression JAMAR (obstructive sleep apnea) T2DM (type 2 diabetes mellitus) Surgical History Surgical History History of hernia repair Family History Family History Mother Heart disease Father Heart disease Social History Social History Social History: Patient drinks about 1 alcoholic beverage a week, has never smoked, does not do marijuana or other drugs. He would like to be a full code. He designates his mother, Fidelina, as his surrogate decision maker if needed Smoking status: Never smoker Alcohol intake: current Drinks per week: 3 Substance use: never Gender identity (if verbalized by the patient): Male Spiritual care concerns: No Comments At the time of my signature, I reviewed and agree with the nursing past medical, surgical, social, and family history. There is no relevant family history pertinent to the patient complaint. Exam Narrative: General: Well-developed, obese, in no apparent distress Head: Normocephalic, atraumatic Eyes: Pupils equally round and reactive to light bilaterally, EOM intact, sclera and conjunctive clear, no discharge, lids normal Ears: TMs intact and congested, ear canals clear, no drainage, grossly hearing normal. Nose: Nares patent, clear discharge, no inflammation, no sinus tenderness. Mouth: Oral pharynx red without lesions or masses, good dentition, MMM. Neck: Supple, trachea midline, no enlargement of anterior or posterior cervical nodes, no thyroid masses or goiter palpable. Cardio: Regular rate and rhythm, s1 and s2 normal, no murmur appreciated. Resp: Clear to auscultation bilaterally, no rhonchi, rales, wheezing or rubs Course Course Emergency Course: Portions of this record may have been created with voice recognition software. Level of Care: Express Care Visit Vital Signs Vital signs: Vital signs reviewed MDM - URI/Sore Throat MDM Narrative Medical decision making narrative: At the
[2024-05-31 08:24] VITALS: BP 147/87; PULSE 95; RESP 16; TEMP 37.3; O2SAT 99
[2024-05-31 10:47] LABS: EDCOVIDSCREEN Positive (Negative)
== END 2024-05-31 08:43 | disposition home or self-care (01) ==
PROVIDERS: Emergency Provider Nurse Practitioner Family; PCP Family Medicine
DX: U07.1 COVID-19 (principal); E11.9 Type 2 diabetes mellitus without complications; Z79.4 Long term (current) use of insulin; F41.9 Anxiety disorder, unspecified; F32.A Depression, unspecified
CPT/HCPCS: 87635; 99212; G0463

== ENCOUNTER 2024-10-18 16:33 | Emergency (ER) | payer OTHER, SELFPAY ==
--- NOTE | 2024-10-18 16:34 | ED_ITS ---
HPI - URI/Sore Throat General Chief Complaint: Upper Respiratory Infection Stated Complaint: DENNISON,fever,cough Time Seen by Provider: 10/18/24 16:34 Source: patient Mode of arrival: ambulatory Limitations: no limitations History of Present Illness HPI Narrative: Patient is a 51-year-old male who presents with 4 days of ear fullness. For 1-2 days he has had, cough, fever, headache. Denies any nausea, vomiting, diarrhea, sore throat. Has been exposed to influenza. Related Data Home Medications ?Medication ?Instructions ?Recorded ?Confirmed ?Last Taken ?Type bupropion HCl 300 mg 24 hr tablet, 300 mg PO DAILY 10/10/20 05/31/24 Unknown History extended release atorvastatin 40 mg tablet 40 mg PO DAILY 01/31/23 05/31/24 Unknown History buspirone 7.5 mg tablet 7.5 mg PO BID 01/31/23 05/31/24 Unknown History testosterone cypionate 200 mg/mL See Rx Instructions .Route .COMPLEX 11/26/23 05/31/24 Unknown History intramuscular oil insulin glargine-yfgn 100 unit/mL unit subcut 10/18/24 Unknown History (3 mL) subcutaneous pen (Semglee (insulin glargine-yfgn) Pen) losartan 50 mg-hydrochlorothiazide tablet 10/18/24 Unknown History 12.5 mg tablet quetiapine 50 mg tablet mg 10/18/24 Unknown History semaglutide 2 mg/dose (8 mg/3 mL) mg subcut 10/18/24 Unknown History subcutaneous pen injector (Ozempic) Allergies Allergy/AdvReac Type Severity Reaction Status Date / Time No Known Allergies Allergy Verified 10/18/24 17:02 Review of Systems Review of Systems: All systems reviewed & are unremarkable except as noted in HPI and below Constitutional: Constitutional: Denies body ache(s), Denies chills, Denies fatigue, Reports fever(s), Reports headache(s), Denies malaise and Denies weakness Eyes: Eyes: Denies blurry vision, Denies itchy eyes and Denies loss of vision ENT: Reports otalgia, Denies headache(s), Reports nasal congestion, Denies sinus pain and Denies sore throat Cardiovascular: Cardiovascular: Denies chest pain, Denies irregular heart rhythm and Denies dyspnea Respiratory: Respiratory: Reports cough and Denies dyspnea Gastrointestinal: Gastrointestinal: Denies abdominal pain, Denies diarrhea, Denies nausea and Denies vomiting Musculoskeletal: Musculoskeletal: Denies back pain, Denies myalgias and Denies arthralgias Integumentary/Breasts: Skin/Breast: Denies pruritus and Denies rash Neurologic: Denies headache(s), Denies loss of vision and Denies weakness Psychiatric: Psychiatric: Reports no additional psychiatric complaints Endocrine: Endocrine: Denies fatigue Allergic/Immunologic: Allergic/Immunologic: Denies itchy eyes PMFSH Past Medical History Medical History JAMAR (obstructive sleep apnea) Anxiety and depression T2DM (type 2 diabetes mellitus) Surgical History Surgical History History of hernia repair Family History Family History Mother Heart disease Father Heart disease Social History Social History Social History: Patient drinks about 1 alcoholic beverage a week, has never smoked, does not do marijuana or other drugs. He would like to be a full code. He designates his mother, Fidelina, as his surrogate decision maker if needed Smoking status: Never smoker Alcohol intake: current Drinks per week: 3 Substance use: never Gender identity (if verbalized by the patient): Male Spiritual care concerns: No Comments At time of signature, agree with nursing past medical, surgical, social and family history. There is no relevant family history pertinent to the presenting complaint. Exam Const: General: cooperative, healthy appearing, comfortable, no acute distress and well nourished Nutritional Appearance: well nourished Orientation/consciousness: patient oriented x3 Limitations: no limitations HENMT: Head: normal to inspection, normocephalic and atraumatic Ears: hearing grossly normal bilaterally, external ears normal, TM's normal bilaterally, EAC's normal and no periauricular adenopathy Face/Nose/Sinus: No rmal external nose present, Abnormal mucous membranes and turbinates present erythematous bilateral and diffuse, normal facial exam, sinuses nontender and face symmetric Face and sinus: normal facial exam, sinuses nontender and face symmetric Mouth: Yes Normal oral and palatal mucosa present, Yes lip normal, Yes tongue normal, Yes Normal salivary glands and ducts present, Yes oropharynx normal and Yes moist mucous membranes Teeth and gingiva: dentition normal Throat: posterior oropharynx normal, tonsils normal and uvula midline Eyes: General: appearance normal, both eyes and all related structures Alignment and Position: alignment normal and position normal Periorbital: periorbital findings normal Eyelids: eyelids normal Pupils: Equal, round and reactive pupils present Neck: Neck: normal visual inspection, full ROM, no lymphadenopathy and supple Chest: Chest palpation & inspection: normal inspection of the chest and normal palpation of entire chest wall Resp: Effort & Inspection: normal respiratory effort and able to speak in complete sentences Auscultation: clear to auscultation bilaterally, no crackles, no rales, no rhonchi and no wheezes Cardio: Rate: tachycardic Rhythm: regular rhythm Heart sounds: S1 normal heart sound present and S2 normal heart sound present GI: Inspection: normal to inspection Skin: General skin exam: normal color and no rashes or lesions noted Neuro: General: patient oriented x3 and moves all extremities Cranial nerves: Yes Equal, round and reactive pupils present Speech: normal speech Gait exam (Neuro): Normal gait present Extrem: General: normal to inspection, full ROM and no edema Psych: Appearance: grossly normal and well kempt Mental Status: mental status grossly normal Speech and movement: Normal speech and movement present Affect: normal affect Attitude: cooperative Thought process: Normal thought process present Course Course Emergency Course: Discharge instructions reviewed with patient, as well as provided in writing per nursing staff. The instructions also include specific and strict return/GO TO THE ER as well as f/u information. All questions have been answered, and the patient deny any further questions with discharge and discharge plan. Portions of this record may have been created with voice recognition software Level of Care: Express Care Visit Vital Signs Vital signs: Vital Signs Temperature 36.9 C 10/18/24 16:42 Pulse Rate 102 H 10/18/24 16:42 Respiratory Rate 18 10/18/24 16:42 Blood Pressure 156/108 H 10/18/24 16:42 Pulse Oximetry 97 10/18/24 16:42 Oxygen Delivery Room Air 10/18/24 16:42 Temperature 36.9 C 10/18/24 16:42 Pulse Rate 102 H 10/18/24 16:42 Respiratory Rate 18 10/18/24 16:42 Blood Pressure 156/108 H 10/18/24 16:42 Pulse Oximetry 97 10/18/24 16:42 Oxygen Delivery Room Air 10/18/24 16:42 Reviewed MDM - URI/Sore Throat MDM Narrative Medical decision making narrative: Pt well hydrated appearing, in no respiratory distress, hemodynamically stable. Recommend supportive care. The patient is stable at time of discharge the clinical impression was discussed and the patient was given the opportunity to ask questions, which were addressed as completely as possible given the information available at present. Anticipatory guidance and return to care precautions were discussed and the importance of primary care follow-up was stressed and encouraged. The patient voiced understanding of the plan, indications to return, and the need for follow-up. Differential diagnosis considered: Holman virus, strep pharyngitis, allergic rhinitis, upper respiratory tract infection, sinusitis, rhinosinusitis, nasopharyngitis. viral pharyngitis, otitis media, otitis externa, otitis effusion, foreign body, cerumen impaction, viral syndrome, and influenza.? Exam findings show no acute concerns or changes; patient is non-toxic appearing and is in no distress.? Patient is appropriate for outpatient treatment and follow- up.? Medical Records Attestation: I reviewed the patient's medical records. Lab Data Attestation: I reviewed the patient's lab results. Labs: Lab Results 10/18/24 Range/Units 17:13 POC Influenza A Ag Positive (Negative) POC Influenza B Ag Negative (Negative) POC SARS CoV-2 Ag Negative (Negative) Discharge Plan Discharge Clinical Impression: Influenza Patient Disposition: Home, Self-Care Condition: Stable Instructions: Influenza (ED) Additional Instructions: Were positive for influenza A. Your Covid is negative Your symptoms are due to a viral illness, which is not treated with antibiotics. Viral symptoms can be present for up to a few weeks. -For fever/pain, you may take: Tylenol 650-1000mg by mouth every 4-6 hours. Do not exceed 4000mg in 24 hours. Advil (Ibuprofen) 600 mg by mouth every 6 hours. Do not exceed 2400mg in 24 hours. 8 AM: Tylenol 11 AM: Ibuprofen 2 PM: Tylenol 5 PM: Ibuprofen 8 PM: Tylenol 11 PM: Ibuprofen 2 AM: Tylenol 5 AM: Ibuprofen -Antihistamine medication such as Benadryl/Zyrtec at night and Claritin/[place] during the day can help improve symptoms. -Use Flonase twice a day for 5 days then daily to help reduce the inflammation and dry up your sinuses. -You can also use Sudafed behind the pharmacy counter(12 or 24 hour). Be sure to drink plenty of water with these medications at least 8 ounces with every dose and it is important to drink 8 to 10 glasses of water per day. Water is a natural decongestant -Eat and drink things that are easy to swallow, like tea or soup, or popsicles. -Oral rinses such as: Salt water gargles and/or may use topical anesthetic (eg. Chloraseptic spray) or lozenges to relieve dryness or throat pain). -Frequent hand washing or hand manager orange is one of the best ways to prevent spread of infection. -Using a vaporizer or humidifier at night will also help thin secretions and help with coughing up phlegm. -Follow up with primary care provider in 3-5 days if condition is not improving - For new or worsening symptoms go directly to the nearest ER Your blood pressure was elevated above 120/80 today at Urgent Care. This puts you above the threshold for follow up visit with a primary care provider. High blood pressure does not usually cause any symptoms, however it may lead to kidney failure, stroke, heart disease just to name a few if untreated . Many people are anxious when seeing a provider or nurse. As a result, you are not diagnosed with hypertension at this time unless your blood pressure is persistently high at two office visits at least one week apart. Some things that can help lower blood pressure are lifestyle modifications, such as light exercise, decreased salt in diet, and weight loss. It is important to follow up with a PCP about this within 1 week. Patient Language: German Prescriptions: New benzonatate 100 mg capsule 100 mg PO BID PRN (Reason: cough) Qty: 14 0RF oseltamivir [Tamiflu] 75 mg capsule 75 mg PO Q12H 5 Days Qty: 10 0RF fluticasone propionate [Flonase Allergy Relief] 50 mcg/actuation spray,suspension 1 spray intranasal DAILY Qty: 16 0RF Rx Instructions: administer into each nostril No Action testosterone cypionate 200 mg/mL oil See Rx Instructions .ROUTE .COMPLEX Rx Instructions: Rx losartan-hydrochlorothiazide 50-12.5 mg tablet quetiapine 50 mg tablet insulin glargine-yfgn [Semglee(insulin glarg-yfgn)Pen] 100 unit/mL (3 mL) insulin pen SUBCUT Ozempic 2 mg/dose (8 mg/3 mL) pen injector SUBCUT atorvastatin 40 mg tablet 40 mg PO DAILY buspirone 7.5 mg tablet 7.5 mg PO BID bupropion HCl 300 mg tablet extended release 24 hr 300 mg PO DAILY (DME) blood-glucose meter [WeixinhaiTouch Verio [place] [facility] [place] 1 0[place] Rx Instructions: May substitute to in-stock meter and/or covered by insurance. Use As Directed (DME) OneTouch Verio test strips Strip Qty: 1 0RF Rx Instructions: May substitute to in-stock and/or covered by insurance strips. Use As Directed (DME) pen needle, diabetic [BD Ultra-Fine Micro Pen Needle] 32 gauge x 1/4 Needle Qty: 1 0RF Rx Instructions: May substitute to meet patient needs. Use As Directed (DME) lancets [WeixinhaiTouch Delica Plus Lancet] [facility]: 1 0RF Rx Instructions: May substitute to in-stock and/or covered by insurance lancets. Use As Directed Follow-up/Referrals: Will,Tj Euceda MD [Primary Care Provider] - 3 Days Stand Alone Forms: Work/School Release IP Time of Disposition: 17:52
[2024-10-18 16:42] VITALS: BP 156/108; PULSE 102; RESP 18; TEMP 36.9; O2SAT 97
[2024-10-18 17:15] LABS: EDCOVIDSCREEN Negative (Negative); EDINFLUASCREEN Positive (Negative); EDINFLUBSCREEN Negative (Negative)
== END 2024-10-18 17:54 | disposition home or self-care (01) ==
PROVIDERS: Emergency Provider Nurse Practitioner Family; PCP Family Medicine
DX: J10.1 Influenza due to other identified influenza virus with other respiratory manifestations (principal); Z20.822 Contact with and (suspected) exposure to COVID-19; E11.9 Type 2 diabetes mellitus without complications; F41.9 Anxiety disorder, unspecified; F32.A Depression, unspecified; Z79.4 Long term (current) use of insulin; Z79.85 Long-term (current) use of injectable non-insulin antidiabetic drugs
CPT/HCPCS: 87426; 87804; 99213; G0463

== ENCOUNTER 2025-02-27 18:19 | Emergency (ER) | payer OTHER, SELFPAY ==
[2025-02-27 18:27] VITALS: BP 152/86; PULSE 84; RESP 20; TEMP 36.7; O2SAT 95
--- NOTE | 2025-02-27 19:06 | ED.SKABFB ---
HPI - Skin/Abscess/Foreign Bdy General Chief complaint: Skin/Abscess/Foreign Body Stated complaint: Allergic Reaction Time Seen by Provider: 02/27/25 18:39 Source: patient and RN notes reviewed Mode of arrival: ambulatory Limitations: no limitations History of Present Illness HPI narrative: Patient presents today concerned about an area of swelling to the left collarbone that has been present for the last 3 weeks. States initially the area shrink in size but has returned. Denies pain or discomfort. Denies any recent illness, unexplained weight loss, persistent cough, fever, difficulty swallowing. Patient is only go to for his diabetes in became concerned when he saw commercial stating he should be evaluated if he noted any swelling in his neck. He called his PCPs office but they could not get him in for several weeks. Related Data Home Medications ?Medication ?Instructions ?Recorded ?Confirmed ?Last Taken ?Type bupropion HCl 300 mg 24 hr tablet, 300 mg PO DAILY 10/10/20 05/31/24 Unknown History extended release atorvastatin 40 mg tablet 40 mg PO DAILY 01/31/23 05/31/24 Unknown History buspirone 7.5 mg tablet 7.5 mg PO BID 01/31/23 05/31/24 Unknown History testosterone cypionate 200 mg/mL See Rx Instructions .Route .COMPLEX 11/26/23 05/31/24 Unknown History intramuscular oil insulin glargine-yfgn 100 unit/mL unit subcut 10/18/24 Unknown History (3 mL) subcutaneous pen (Semglee (insulin glargine-yfgn) Pen) losartan 50 mg-hydrochlorothiazide tablet 10/18/24 Unknown History 12.5 mg tablet quetiapine 50 mg tablet mg 10/18/24 Unknown History semaglutide 2 mg/dose (8 mg/3 mL) mg subcut 10/18/24 Unknown History subcutaneous pen injector (Ozempic) Allergies Allergy/AdvReac Type Severity Reaction Status Date / Time No Known Allergies Allergy Verified 02/27/25 18:20 Review of Systems Review of Systems: CONSTITUTIONAL: Denies body aches, fever, chills, or sweats. EYES: Denies visual changes, redness, or discharge. ENT: Denies rhinorrhea, congestion, sore throat, or otalgia. CARDIOVASCULAR: Denies chest pain, palpitations, or edema. RESPIRATORY: Denies cough or dyspnea. GASTROINTESTINAL: Denies abdominal pain, nausea, vomiting, or diarrhea. GENITOURINARY: Denies dysuria or hematuria. SKIN: Swelling MUSCULOSKELETAL: Denies back pain, joint pain, or myalgia. NEUROLOGIC: Denies headache, numbness, tingling, or weakness. PSYCH: Denies depression or anxiety. [facility] Past Medical History Medical History JAMAR (obstructive sleep apnea) Anxiety and depression T2DM (type 2 diabetes mellitus) Surgical History Surgical History History of hernia repair Family History Family History Mother Heart disease Father Heart disease Social History Social History Social History: Patient drinks about 1 alcoholic beverage a week, has never smoked, does not do marijuana or other drugs. He would like to be a full code. He designates his mother, Fidelina, as his surrogate decision maker if needed Smoking status: Never smoker Alcohol intake: current Drinks per week: 3 Substance use: never Gender identity (if verbalized by the patient): Male Spiritual care concerns: No Comments At time of signature, I have reviewed and agree with nursing past medical, surgical, social and family history unless otherwise noted. Please see nursing chart for further information. There is no relevant family history pertinent to the presenting complaint Exam Narrative: GENERAL: Well-appearing, well-nourished, and in no acute distress. HEAD: Normocephalic, atraumatic. EYES: EOMI. No redness or drainage. Conjunctivae normal. ENT: Mucous membranes pink and moist. NECK: Normal AROM. Supple. 5x8cm area of localized swelling with ill-defined margins superior to the left lateral clavicle area. Non tender to palpation. No ecchymosis, erythema, induration, fluctuance. Very soft. No bony tenderness to the clavicle CHEST: No respiratory distress. EXTREMITIES: Normal range of motion. No edema. SKIN: Warm, dry, no rash. Capillary refill normal. Normal skin turgor. NEURO: No focal deficits. Alert and oriented x3. Gait steady. PSYCH: Normal affect. No signs of depression or anxiety. Course Course Level of Care: Express Care Visit Vital Signs Vital signs: Vital Signs Temperature 98.0 F 02/27/25 18:27 Pulse Rate 84 02/27/25 18:27 Respiratory Rate 20 02/27/25 18:27 Blood Pressure 152/86 H 02/27/25 18:27 Pulse Oximetry 95 02/27/25 18:27 Oxygen Delivery Room Air 02/27/25 18:27 Temperature 98.0 F 02/27/25 18:27 Pulse Rate 84 02/27/25 18:27 Respiratory Rate 20 02/27/25 18:27 Blood Pressure 152/86 H 02/27/25 18:27 Pulse Oximetry 95 02/27/25 18:27 Oxygen Delivery Room Air 02/27/25 18:27 Reviewed MDM - Skin/Abscess/Foreign Bdy MDM Narrative Medical decision making narrative: The etiology of patient's swelling is unclear. He has declined transfer to the ER for further evaluation today. Would like to call his PCP in the morning to schedule a follow-up visit. Strict ED precautions given. Differential Diagnosis Differential diagnosis: Likely abscess of skin or subcutaneous tissue and other (Malignancy, lipoma, lymphadenitis) Critical Care Time Critical Care Time Critical Care Time: No Discharge Plan Discharge Clinical Impression: Swelling, mass, or lump in chest Patient Disposition: Home Condition: Stable Additional Instructions: The cause of your swelling is unclear, but needs to be further investigated. You have declined transfer to the emergency department today. Please call your PCPs office tomorrow to schedule a follow-up appointment as soon as possible for further evaluation. As discussed, if you develop any additional symptoms such as fever, pain to the area, growing mass, please go to the ER immediately for further evaluation. Your blood pressure was elevated above 120/80 today at Urgent Care. This puts you above the threshold for follow up. Please schedule a followup visit with your personal physician as soon as possible, for further evaluation and treatment. Even blood pressure exceeding 120/80 may indicate pre-hypertension. Patient Language: Macedonian Prescriptions: No Action testosterone cypionate 200 mg/mL oil See Rx Instructions .ROUTE .COMPLEX Rx Instructions: Rx losartan-hydrochlorothiazide 50-12.5 mg tablet quetiapine 50 mg tablet insulin glargine-yfgn [Semglee(insulin glarg-yfgn)Pen] 100 unit/mL (3 mL) insulin pen SUBCUT Ozempic 2 mg/dose (8 mg/3 mL) pen injector SUBCUT atorvastatin 40 mg tablet 40 mg PO DAILY buspirone 7.5 mg tablet 7.5 mg PO BID bupropion HCl 300 mg tablet extended release 24 hr 300 mg PO DAILY (DME) blood-glucose meter [OneTouch Verio Flex meter] [facility] [place] Qty: 1 0RF Rx Instructions: May substitute to in-stock meter and/or covered by insurance. Use As Directed (DME) OneTouch Verio test strips Strip Qty: 1 0RF Rx Instructions: May substitute to in-stock and/or covered by insurance strips. Use As Directed (DME) pen needle, diabetic [BD Ultra-Fine Micro Pen Needle] 32 gauge x 1/4 Needle Qty: 1 0RF Rx Instructions: May substitute to meet patient needs. Use As Directed (DME) lancets [Keyword RockstarTouch Delica Plus Lancet] 30 gauge Misc Qty: 1 0RF Rx Instructions: May substitute to in-stock and/or covered by insurance lancets. Use As Directed Follow-up/Referrals: Will,Tj Euceda MD [Primary Care Provider] - 1 Day (Please investigate localized swelling of left upper chest) Time of Disposition: 19:05
== END 2025-02-27 19:10 | disposition home or self-care (01) ==
PROVIDERS: Emergency Provider Nurse Practitioner; PCP Family Medicine
DX: R22.2 Localized swelling, mass and lump, trunk (principal); E11.9 Type 2 diabetes mellitus without complications; F41.9 Anxiety disorder, unspecified; F32.A Depression, unspecified
CPT/HCPCS: 99211; G0463